=== PATIENT | male | born 1955 ===

== ENCOUNTER 2017-12-22 07:33 | Inpatient (IN) | payer BC, OTHER ==
[2017-12-22 07:41] VITALS: BMI 25.5
--- NOTE | 2017-12-22 08:23 | ED PDOC ---
Arrival/HPI - History of Present Illness Narrative History of Present Illness (Text): 12/22/17 08:19 CC: sob This is a 62 year old male with PMH of CHF (ef 25%) requiring pacemaker placement (2016), CAD with stents, HTN, who presents with exertional sob for the past 2-3 days. Pt states that the shortness of breath is worse after walking about 25 feet, and relieved by rest. Pt had a slight cough productive of white phelgm, but says the cough is due to phelgm stuck in his throat. Pt denies fever, chills, headache, lightheadedness, visual changes, chest pain, palpitations, leg swelling, leg pain, abdominal pain, n/v/d, recent illness, recent travel. Pt was on Plavix and Pradaxa, but told to stop taking that. PMD: Danielle (last seen 1 year ago because of insurance issues) Engineering Coordinator: Tramaine (last seen 1.5 years ago because of insurance issues) PMH: CAD with multivessel disease, [place] (Oct 2015) s/p stents x 6, CHF (with PPM 2017) HTN, HLD, Hypothyroidism, Aneurysm PSH: PPM (2017) Meds: ASA 81 mg daily. Doesn't take HTN medications because he doesn't have money. Allx: none <Perry Gallagher - Last Filed: 12/22/17 10:33> <Joby Ugarte - Last Filed: 12/22/17 12:26> - General Chief Complaint: Shortness Of Breath Time Seen by Provider: 12/22/17 07:35 Past Medical History - Infectious Disease Hx of Infectious Diseases: None - Cardiac Hx VT: Yes Hx Hypertension: Yes Other/Comment: catrdiac stent - Hematological/Oncological Hx Blood Transfusions: No - Integumentary Other/Comment: b/l ft redness, r foot black pinky toe - Musculoskeletal/Rheumatological Hx Falls: No - Psychiatric Hx Substance Use: No - Surgical History Hx Coronary Stent: Yes (x6) - Anesthesia Hx Anesthesia Reactions: No Hx Malignant Hyperthermia: No <Perry Gallagher - Last Filed: 12/22/17 10:33> Family/Social History Smoking Status: Unknown If Ever Smoked Hx Alcohol Use: No Hx Substance Use: No <Perry Gallagher Last Filed: 12/22/17 10:33> Family/Social History: Unknown Family HX <Joby Ugarte - Last Filed: 12/22/17 12:26> Allergies/Home Meds <Perry Gallagher - Last Filed: 12/22/17 10:33> <Joby Ugarte - Last Filed: 12/22/17 12:26> Allergies/Adverse Reactions: Allergies No Known Allergies Allergy (Verified 12/22/17 07:41) Home Medications: Home Meds Medication Instructions Recorded Confirmed RX: Amiodarone [Cordarone] 400 mg PO BID 03/01/16 05/03/16 RX: Atorvastatin [Lipitor] 80 mg PO DAILY 03/01/16 05/03/16 RX: Clopidogrel [Plavix] 75 mg PO DAILY 03/01/16 05/03/16 RX: Lisinopril [Zestril] 5 mg PO DAILY 03/01/16 05/03/16 RX: Metoprolol Succinate XL 50 mg PO DAILY 03/01/16 05/03/16 [Toprol XL] RX: amLODIPine [Norvasc] 5 mg PO DAILY 03/01/16 05/03/16 Review of Systems - Review of Systems Systems not reviewed;Unavailable: Other (see HPI) <Perry Gallagher Last Filed: 12/22/17 10:33> Physical Exam Vital Signs Reviewed: Yes (repeat BP is 164/99) Vital Signs Temp Pulse Resp BP Pulse Ox 12/22/17 08:08 18 93 L 12/22/17 07:42 97.9 F 101 H 23 179/102 H 94 L Appearance: Positive for: Non-Toxic, Comfortable - Systems Exam Head: Present: Atraumatic, Normocephalic Extroacular Muscles: Present: EOMI Conjunctiva: Present: Normal Mouth: Present: Moist Mucous Membranes Pharnyx: Present: ERYTHEMA. No: EXUDATE, TONSILS ENLARGED Nose (Internal): Present: Moist Neck: Present: Normal Range of Motion Respiratory/Chest: Present: Rales (at the bases bilaterally). No: Respiratory Distress, Wheezes, Rhonchi, Tachypneic, Tender to Palpation Cardiovascular: Present: Regular Rate and Rhythm, Normal S1, S2, Other ((+) PPM left upper chest wall) Abdomen: Present: Normal Bowel Sounds. No: Tenderness, Distention, Rebound, Guarding Upper Extremity: Present: NORMAL PULSES, Capillary Refill < 2s. No: Swelling Lower Extremity: Present: NORMAL PULSES, Capillary Refill < 2 s. No: CALF TENDERNESS, Tenderness, Swelling Neurological: Present: Speech Normal Skin: Present: Warm, Dry, Normal Color Psychiatric: Present: Alert <Perry Gallagher - Last Filed: 12/22/17 10:33> Vital Signs Temp Pulse Resp BP Pulse Ox 12/22/17 10:12 92 H 18 146/104 H 95 12/22/17 09:32 155/120 H 12/22/17 08:18 100 H 18 164/99 H 95 12/22/17 08:08 18 93 L 12/22/17 07:42 97.9 F 101 H 23 179/102 H 94 L <Joby Ugarte - Last Filed: 12/22/17 12:26> Medical Decision Making ED Course and Treatment: Pt with sob on exertion, no cp. congestion on CXR, BNP is greater than 5000. troponin negative x1. Treated with Furosemide 20 mg IVP. Admit for CHF exacerbation. - Lab Interpretations I have reviewed the lab results: Yes Interpretation: Abnormal lab values (BNP) - RAD Interpretation Narrative RAD Interpretations (Text): CXR: pulmonary vascular congestion, with bilateral pulm edema R>L; as read by me Radiology Orders: 12/22/17 08:14 CHEST PORTABLE [RAD] Stat - EKG Interpretation EKG Interpretation (Text): St at 102, occasional PVCs, LVH, nonspecific STTW changes; as read by ED attending Interpreted by ED Physician: Yes <Perry Gallagher - Last Filed: 12/22/17 10:33> ED Course and Treatment: 12/22/17 12:25 pt seen with resid[facility]. chf exacerb ation stable for telel. accepted by hiospitalist. - Lab Interpretations Lab Results: 12/22/17 07:55 12/22/17 07:55 Lab Results 12/22/17 07:55: Sodium 142, Potassium 4.1, Chloride 107, Carbon Dioxide 26, Anion Gap 13, BUN 29 H, Creatinine 1.3, Est GFR ( Amer) > 60, Est GFR (Non-Af Amer) 56, Random Glucose 117 H, Calcium 9.7, Magnesium 2.3 H, Total Bilirubin 0.9, AST 24, ALT 19, Alkaline Phosphatase 71, Lactate Dehydrogenase 595, Total Creatine Kinase 81, Troponin I 0.03 D, NT-Pro-B Natriuret Pep 5790 H , Total Protein 8.0, Albumin 4.5, Globulin 3.6, Albumin/Globulin Ratio 1.2 12/22/17 07:55: PT 12.7 H, INR 1.10, APTT 27.2 12/22/17 07:55: WBC 9.3, RBC 4.88, Hgb 15.9, Hct 47.0, MCV 96.3, MCH 32.6, MCHC 33.8, RDW 13.6, Plt Count 138, MPV 13.8 H, Gran % 74.2 H, Lymph % (Auto) 18.9 L, Bound[place] % (Auto) 5.2, Eos % (Auto) 1.2 L, Baso % (Auto) 0.5, Gran # 6.90 H, Lymph # (Auto) 1.8, Boundary # (Auto) 0.5, Eos # (Auto) 0.1, Baso # (Auto) 0.05 - RAD Interpretation Radiology Orders: 12/22/17 08:14 CHEST PORTABLE [RAD] Stat - Medication Orders Current Medication Orders: Discontinued Medications Furosemide (Lasix) 40 mg IVP STAT STA Stop: 12/22/17 09:20 Last Admin: 12/22/17 09:32 Dose: 40 mg MAR Blood Pressure Document 12/22/17 09:32 EQ (Rec: 12/22/17 09:33 EQ [id number]) Blood Pressure Blood Pressure (100/60-150/90) 155/120 IVP Administration Document 12/22/17 09:32 EQ (Rec: 12/22/17 09:33 EQ [id number]) Charges for Administration # of IVP Administrations 1 <Joby Ugarte - Last Filed: 12/22/17 12:26> Disposition/Present on Arrival - Present on Arrival Any Indicators Present on Arrival: No History of DVT/PE: No History of Uncontrolled Diabetes: No Urinary Catheter: No History of Decub. Ulcer: No History Surgical Site Infection Following: None - Disposition Have Diagnosis and Disposition been Completed?: Yes Disposition Time: 09:33 <Perry Gallagher - Last Filed: 12/22/17 10:33> - Present on Arrival Any Indicators Present on Arrival: No - Disposition Have Diagnosis and Disposition been Completed?: Yes <Joby Ugarte - Last Filed: 12/22/17 12:26> - Disposition Diagnosis: CHF (congestive heart failure) Disposition: HOSPITALIZED Patient Problems: Current Active Problems Problem Status Onset CHF (congestive heart failure) Acute Condition: GUARDED
[2017-12-22 08:59] LABS: BASO # 0.05 K/mm3 (0.0-2.0); BASO % 0.5 % (0.0-3.0); EOS # 0.1 (0.0-0.7); EOS % 1.2 % (1.5-5.0); GRAN # 6.9 (1.4-6.5); GRAN % 74.2 % (50.0-68.0); HEMOGLOBIN 15.9 g/dL (14.0-18.0); LYMPH # 1.8 (1.2-3.4); LYMPH % 18.9 % (22.0-35.0); MEAN CELL VOLUME 96.3 fl (80.0-105.0); MEAN CORPUSCULAR HEMOGLOBIN 32.6 pg (25.0-35.0); MEAN CORPUSCULAR HGB CONC 33.8 g/dl (31.0-37.0); MEAN PLATELET VOLUME 13.8 fl (7.0-11.0); MONO # 0.5 (0.1-0.6); MONO % 5.2 % (1.0-6.0); RBC 4.88 10^6/uL (3.5-6.1); RED CELL DISTRIBUTION WIDTH 13.6 % (11.5-14.5); WHITE BLOOD COUNT 9.3 10^3/ul (4.5-11.0)
[2017-12-22 09:09] LABS: ALB/GLOB RATIO 1.2 (1.1-1.8); ALBUMIN 4.5 g/dL (3.0-4.8); ALT/SGPT 19 U/L (7-56); AST/SGOT 24 U/L (17-59); BLOOD UREA NITROGEN 29 mg/dL (7-21); CALCIUM 9.7 mg/dL (8.4-10.5); GFR NON-AFRICAN AMERICAN 56
[2017-12-22 09:16] LABS: INR 1.1; PARTIAL THROMBOPLASTIN TIME 27.2 Seconds (25.1-36.5); PROTHROMBIN TIME 12.7 SECONDS (9.4-12.5)
[2017-12-22 09:18] LABS: B-TYPE NATRIURETIC PEPTIDE 5790 pg/mL (0-450); TROPONIN I 0.03 ng/mL
--- NOTE | 2017-12-22 10:22 | CARD ---
APPROVED REPORT Date of service: 12/22/2017 EKG Measurement Heart [id number] <Conclusion> Sinus tachycardia with premature ventricular complexes Left atrial enlargement IVCD Left ventricular hypertrophy Anteroseptal infarct, old ST & T wave abnormality c/w ischemia
[2017-12-22 10:43] LABS: URINE BILIRUBIN NEGATIVE (NEGATIVE); URINE BLOOD NEGATIVE (NEGATIVE); URINE GLUCOSE (UA) NEGATIVE (NEGATIVE); URINE LEUKOCYTE ESTERASE NEGATIVE Leu/uL (NEGATIVE); URINE PROTEIN NEGATIVE mg/dL (<30 mg/dL); URINE UROBILINOGEN 0.2 E.U./dL (<1 E.U./dL)
[2017-12-22 10:47] LABS: URINE APPEARANCE CLEAR (CLEAR); URINE COLOR YELLOW (YELLOW)
--- NOTE | 2017-12-22 11:43 | RAD ---
Date of service: 12/22/2017 HISTORY: Shortness of breath. COMPARISON: 03/01/2016. FINDINGS: LUNGS: No focal infiltrates identified. PLEURA: No significant pleural effusion identified, no pneumothorax apparent. CARDIOVASCULAR: No atherosclerotic calcification present Cardiomegaly and mild CHF/pulmonary vascular congestion. Position/ configuration of pacemaker represents a new finding compared to the prior study. OSSEOUS STRUCTURES: No significant abnormalities. VISUALIZED UPPER ABDOMEN: Normal. OTHER FINDINGS: None. IMPRESSION: Cardiomegaly, acute and mild CHF.
--- NOTE | 2017-12-22 13:48 | CP.PCM.HP ---
<AnhcharoJorge - Last Filed: 12/22/17 15:14> History of Present Illness - History of Present Illness History of Present Illness: PGY-1 Medicine H&P for Dr. Mata Patient a 62 yo M with PMHx of CHF w/ LVEF 25% (05/03/2016), pacemaker placement (01/2017), CAD s/p stents x 6 (2015), HTN, HLD, Hypothyroidism, aortic aneurysm (02/2016) who presents with BANDA x 3 days. Per patient, three days ago he was walking to his car when he started to feel short of breath. He attributed it to cold change in weather at the time. He tried to take Mucinex, as he thought he might have some congestion, but his symptoms did not resolve. Last night, patient again began having difficulty sleeping due to SOB. He states he normally sleeps with two pillows at night. His exertional symptoms also in creased, stating he cannot walk more than 20-25 feet without severe SOB, which prompted him to come to the ED. No fevers/chills, headches, dizziness, changes in vision, chest pain, palpitations, paroxysmal nocturnal dyspnea, orthopnea, peripheral edema, n/v/d/c, dysuria, or changes in stool. 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 Per patient, he was also on Plavix and Pradaxa but was told they were no longer indicated by his credit reporter at last visit Allergies: NKDA Social Hx: Former smoker-1ppd for several years, social drinker, denies illicit drug use FHx: unknown PMD: Dr. Santos (has not seen in over a year) Traffic Control Operator: Dr. Redd (has not seen in over a year) Present on Admission - Present on Admission Any Indicators Present on Admission: No History of DVT/PE: No History of Uncontrolled Diabetes: No Urinary Catheter: No Decubitus Ulcer Present: No Review of Systems - Constitutional Constitutional: absent: Chills, Fever, Headache, Weakness - EENT Eyes: absent: Blurred Vision, Change in Vision Ears: absent: Decreased Hearing Nose/Mouth/Throat: absent: Nasal Congestion, Nasal Discharge - Cardiovascular Cardiovascular: Dyspnea, Dyspnea on Exertion. absent: Chest Pain, Chest Pain at Rest, Chest Pain with Activity, Edema, Leg Edema, Lightheadedness, Orthopnea, Palpitations, Paroxysmal Nocturnal Dyspnea - Respiratory Respiratory: Dyspnea, Dyspnea on Exertion. absent: Cough, Hemoptysis, Wheezing, Stridor - Gastrointestinal Gastrointestinal: absent: Abdominal Pain, Constipation, Diarrhea, Nausea, Vomiting - Genitourinary Genitourinary: absent: Change in Urinary Stream, Difficulty Urinating, Dysuria - Musculoskeletal Musculoskeletal: absent: Arthralgias, Joint Swelling, Limited Range of Motion, Muscle Weakness, Myalgias - Neurological Neurological: absent: Confusion, Dizziness, Focal Weakness, Headaches, Syncope, Weakness Past Patient History - Infectious Disease Hx of Infectious Diseases: None - Past Social History Smoking Status: Unknown If Ever Smoked - CARDIAC Hx Heart Attack: Yes Hx Hypertension: Yes Other/Comment: catrdiac stent - HEMATOLOGICAL/ONCOLOGICAL Hx Blood Transfusions: No - INTEGUMENTARY Other/Comment: b/l ft redness, r foot black pinky toe - MUSCULOSKELETAL/RHEUMATOLOGICAL Hx Falls: No - PSYCHIATRIC Hx Substance Use: No - SURGICAL HISTORY Hx Coronary Stent: Yes (x6) - ANESTHESIA Hx Anesthesia Reactions: No Hx Malignant Hyperthermia: No Meds Allergies/Adverse Reactions: Allergies Allergy/AdvReac Type Severity Reaction Status Date / Time No Known Allergies Allergy Verified 12/22/17 07:41 Physical Exam - Constitutional Appears: Well, Non-toxic, No Acute Distress - Head Exam Head Exam: ATRAUMATIC, NORMAL INSPECTION, NORMOCEPHALIC - Eye Exam Eye Exam: EOMI, Normal appearance, PERRL Pupil Exam: NORMAL ACCOMODATION - ENT Exam ENT Exam: Mucous Membranes Moist, Normal Exam - Neck Exam Neck exam: Positive for: Normal Inspection - Respiratory Exam Respiratory Exam: Clear to Auscultation Bilateral, NORMAL BREATHING PATTERN. absent: Accessory Muscle Use, Rales, Rhonchi, Wheezes, Respiratory Distress, Stridor - Cardiovascular Exam Cardiovascular Exam: REGULAR RHYTHM, +S1, +S2 - GI/Abdominal Exam GI & Abdominal Exam: Normal Bowel Sounds, Soft. absent: Distended, Firm, Guarding, Rebound, Rigid, Tenderness - Extremities Exam Extremities exam: Positive for: full ROM, normal capillary refill, normal inspection, pedal pulses present. Negative for: calf tenderness, joint swelling, pedal edema - Back Exam Back exam: FULL ROM, NORMAL INSPECTION - Neurological Exam Neurological exam: Alert, CN II-XII Intact, Normal Gait, Oriented x3 - Psychiatric Exam Psychiatric exam: Normal Affect, Normal Mood - Skin Skin Exam: Dry, Intact, Normal Color, Warm Results - Vital Signs Recent Vital Signs: Last Vital Signs Temp 98.2 F 12/22/17 12:00 Pulse 87 12/22/17 12:00 Resp 18 12/22/17 12:00 BP 152/107 H 12/22/17 12:00 Pulse Ox 95 12/22/17 10:12 - Labs Result Diagrams: 12/22/17 07:55 12/22/17 07:55 Labs: Laboratory Results - last 24 hr 12/22/17 12/22/17 12/22/17 07:55 07:55 07:55 WBC 9.3 RBC 4.88 Hgb 15.9 Hct 47.0 MCV 96.3 MCH 32.6 MCHC 33.8 RDW 13.6 Plt Count 138 MPV 13.8 H Gran % 74.2 H Lymph % (Auto) 18.9 L Tyrrell % (Auto) 5.2 Eos % (Auto) 1.2 L Baso % (Auto) 0.5 Gran # 6.90 H Lymph # (Auto) 1.8 Tyrrell # (Auto) 0.5 Eos # (Auto) 0.1 Baso # (Auto) 0.05 PT 12.7 H INR 1.10 APTT 27.2 Sodium 142 Potassium 4.1 Chloride 107 Carbon Dioxide 26 Anion Gap 13 BUN 29 H Creatinine 1.3 Est GFR ( Amer) > 60 Est GFR (Non-Af Amer) 56 Random Glucose 117 H Calcium 9.7 Magnesium 2.3 H Total Bilirubin 0.9 AST 24 ALT 19 Alkaline Phosphatase 71 Lactate Dehydrogenase 595 Total Creatine Kinase 81 Troponin I 0.03 D NT-Pro-B Natriuret Pep 5790 H Total Protein 8.0 Albumin 4.5 Globulin 3.6 Albumin/Globulin Ratio 1.2 Urine Color Urine Appearance Urine pH Ur Specific Treichlers Urine Protein Urine Glucose (UA) Urine Ketones Urine Blood Urine Nitrate Urine Bilirubin Urine Urobilinogen Ur Leukocyte Esterase 12/22/17 10:30 WBC RBC Hgb Hct MCV MCH MCHC RDW Plt Count MPV Gran % Lymph % (Auto) Tyrrell % (Auto) Eos % (Auto) Baso % (Auto) Gran # Lymph # (Auto) Tyrrell # (Auto) Eos # (Auto) Baso # (Auto) PT INR APTT Sodium Potassium Chloride Carbon Dioxide Anion Gap BUN Creatinine Est GFR ( Amer) Est GFR (Non-Af Amer) Random Glucose Calcium Magnesium Total Bilirubin AST ALT Alkaline Phosphatase Lactate Dehydrogenase Total Creatine Kinase Troponin I NT-Pro-B Natriuret Pep Total Protein Albumin Globulin Albumin/Globulin Ratio Urine Color Yellow Urine Appearance Clear Urine pH 6.0 Ur Specific Treichlers 1.025 Urine Protein Negative Urine Glucose (UA) Negative Urine Ketones Negative Urine Blood Negative Urine Nitrate Negative Urine Bilirubin Negative Urine Urobilinogen 0.2 Ur Leukocyte Esterase Negative Assessment & Plan - Assessment and Plan (Free Text) Assessment: 62 yo M with PMHx CHF (EF 25%), pacemaker placement (05/2016), CAD s/p stents x 6 (2015), HTN, HLD, Hypothyroidism, aortic aneurysm (02/2016) presenting with CHF exacerbation and HTN urgency. Plan: Acute exacerbation of Systolic HF with reduced EF --Pt presented with BANDA x 3 days --clinically improved s/p Lasix 40 mg IVP x1 in ED, continuing to monitor --Trop x 1 negative, f/u trops 2 and 3 --BNP 5290 --daily weights --strict I/Os --fluid, Na restriction --Imaging -EKG (12/22): Sinus tachycardia with PVCs, L atrial enlargement, LVH, old anteroseptal infarct, ST & T wave abnormality without ischemia -CXR (12/22): cardiomegaly, mild CHF/pulmonary vascular congestion, pacemaker in place --Cardiology (Dr. Redd) on board Hypertensive Urgency --BP 179/102 on admission, not compliant with meds --Continue to monitor BP --Restart home medications -Norvasc 5mg PO daily -Lisinopril 5mg PO daily -Metoprolol 50 mg PO daily Hx of CAD s/p stents --Trend trops --f/u HgbA1C --f/u Lipid panel --Restart home ASA 81 mg PO daily --Heart healthy diet HLD --f/u lipid panel --Restart home Atorvastatin 80 mg PO daily Hypothyroidism --Pt asymptomatic, not currently on medications --f/u TSH, free T4 Ppx, Diet, Disposition --DVT ppx: Lovenox 40 mg subQ daily --Diet: HHD --Disposition: Pt can likely be discharged if symptoms resolve pending cardio eval. Pt will need joann care and education on medication compliance following discharge as he is without insurance. Case discussed with Dr. Esperanza Parikh DO, PGY-1 <Tahir Mata - Last Filed: 12/22/17 16:03> Results - Vital Signs Recent Vital Signs: Last Vital Signs Temp 98.2 F 12/22/17 12:00 Pulse 104 H 12/22/17 14:00 Resp 18 12/22/17 12:00 BP 152/107 H 12/22/17 12:00 Pulse Ox 95 12/22/17 10:12 - Labs Result Diagrams: 12/22/17 07:55 12/22/17 07:55 Labs: Laboratory Results - last 24 hr 12/22/17 12/22/17 12/22/17 07:55 07:55 07:55 WBC 9.3 RBC 4.88 Hgb 15.9 Hct 47.0 MCV 96.3 MCH 32.6 MCHC 33.8 RDW 13.6 Plt Count 138 MPV 13.8 H Gran % 74.2 H Lymph % (Auto) 18.9 L Tyrrell % (Auto) 5.2 Eos % (Auto) 1.2 L Baso % (Auto) 0.5 Gran # 6.90 H Lymph # (Auto) 1.8 Tyrrell # (Auto) 0.5 Eos # (Auto) 0.1 Baso # (Auto) 0.05 PT 12.7 H INR 1.10 APTT 27.2 Sodium 142 Potassium 4.1 Chloride 107 Carbon Dioxide 26 Anion Gap 13 BUN 29 H Creatinine 1.3 Est GFR ( Amer) > 60 Est GFR (Non-Af Amer) 56 Random Glucose 117 H Calcium 9.7 Magnesium 2.3 H Total Bilirubin 0.9 AST 24 ALT 19 Alkaline Phosphatase 71 Lactate Dehydrogenase 595 Total Creatine Kinase 81 Troponin I 0.03 D NT-Pro-B Natriuret Pep 5790 H Total Protein 8.0 Albumin 4.5 Globulin 3.6 Albumin/Globulin Ratio 1.2 Urine Color Urine Appearance Urine pH Ur Specific Treichlers Urine Protein Urine Glucose (UA) Urine Ketones Urine Blood Urine Nitrate Urine Bilirubin Urine Urobilinogen Ur Leukocyte Esterase 12/22/17 12/22/17 10:30 14:00 WBC RBC Hgb Hct MCV MCH MCHC RDW Plt Count MPV Gran % Lymph % (Auto) Tyrrell % (Auto) Eos % (Auto) Baso % (Auto) Gran # Lymph # (Auto) Tyrrell # (Auto) Eos # (Auto) Baso # (Auto) PT INR APTT Sodium Potassium Chloride Carbon Dioxide Anion Gap BUN Creatinine Est GFR ( Amer) Est GFR (Non-Af Amer) Random Glucose Calcium Magnesium Total Bilirubin AST ALT Alkaline Phosphatase Lactate Dehydrogenase Total Creatine Kinase Troponin I 0.03 NT-Pro-B Natriuret Pep Total Protein Albumin Globulin Albumin/Globulin Ratio Urine Color Yellow Urine Appearance Clear Urine pH 6.0 Ur Specific Treichlers 1.025 Urine Protein Negative Urine Glucose (UA) Negative Urine Ketones Negative Urine Blood Negative Urine Nitrate Negative Urine Bilirubin Negative Urine Urobilinogen 0.2 Ur Leukocyte Esterase Negative Attending/Attestation - Attestation I have personally seen and examined this patient.: Yes I have fully participated in the care of the patient.: Yes I have reviewed all pertinent clinical information: Yes Notes (Text): Patient seen and examined with the residents, agree with above No cardiopulmonary distress, sitting up and maintaining good O2 saturation Acute exacerbation of HF with reduced EF - continue with IV lasix and acei/arb therapy Cardio consultation for further management, has poor medication compliance and outpt f/u due to lack of insurance Optimize bp control
[2017-12-22] MEDS: Enoxaparin 40 mg Syringe SC SCH (14:10)
[2017-12-22] MEDS ORDERED: Influenza Vaccine 60 mcg/0.5 mL SYR (4YR UP) IM ONE (17:34)
[2017-12-22] MEDS ORDERED: Pneumococcal 23-Valent Vaccine IM ONE (17:34)
[2017-12-22 17:37] VITALS: RESP 20
[2017-12-23 06:22] LABS: BASO # 0.06 K/mm3 (0.0-2.0); BASO % 0.6 % (0.0-3.0); EOS # 0.3 (0.0-0.7); EOS % 2.7 % (1.5-5.0); GRAN # 5.31 (1.4-6.5); GRAN % 57.2 % (50.0-68.0); HEMOGLOBIN 15.4 g/dL (14.0-18.0); LYMPH # 2.8 (1.2-3.4); MEAN CELL VOLUME 95.8 fl (80.0-105.0); MEAN CORPUSCULAR HEMOGLOBIN 32.7 pg (25.0-35.0); MEAN CORPUSCULAR HGB CONC 34.1 g/dl (31.0-37.0); MEAN PLATELET VOLUME 13.9 fl (7.0-11.0); MONO # 0.9 (0.1-0.6); MONO % 9.5 % (1.0-6.0); RBC 4.71 10^6/uL (3.5-6.1); RED CELL DISTRIBUTION WIDTH 13.7 % (11.5-14.5); WHITE BLOOD COUNT 9.3 10^3/ul (4.5-11.0)
[2017-12-23 06:30] VITALS: O2SAT 97
[2017-12-23 06:47] LABS: LDL CHOLESTEROL 164 mg/dL (0-129)
[2017-12-23 06:48] LABS: FREE T4 0.79 ng/dL (0.78-2.19)
[2017-12-23 07:21] LABS: ALB/GLOB RATIO 1.3 (1.1-1.8); ALBUMIN 4.3 g/dL (3.0-4.8); ALT/SGPT 23 U/L (7-56); AST/SGOT 27 U/L (17-59); BLOOD UREA NITROGEN 35 mg/dL (7-21); CALCIUM 9.4 mg/dL (8.4-10.5); GFR NON-AFRICAN AMERICAN 51; HDL CHOLESTEROL 35 mg/dL (29-60)
[2017-12-23] MEDS ORDERED: Metoprolol Succinate 50 mg XL Tab PO SCH (08:00)
--- NOTE | 2017-12-23 09:30 | CARD ---
APPROVED REPORT Date of service: 12/22/2017 EXAM: Two-dimensional and M-mode echocardiogram with Doppler and color Doppler. Other Information Quality : AverageRhythm : INDICATION CHF EXACERBATION: LOW EF 2D DIMENSIONS Left Atrium (2D)4.9 (1.6-4.0cm)IVSd1.2 (0.7-1.1cm) LVDd6.9 (3.9-5.9cm)PWd1.2 (0.7-1.1cm) LVDs6.4 (2.5-4.0cm)FS (%) 7.5 % LVEF (%)16.0 (>50%) M-Mode DIMENSIONS Aortic Root3.90 (2.2-3.7cm)Aortic Cusp Exc.1.70 (1.5-2.0cm) Aortic Valve AoV Peak Xbplbnvv291.0cm/s Mitral Valve MV E Srisjjqs22.4cm/sMV A Kkzbguzt85.1cm/sE/A ratio1.5 TDI E/Lateral E'0.0E/Medial E'0.0 Tricuspid Valve TR Peak [id number]/sRAP [id number] Peak Gr.23mmHg [id number] LEFT VENTRICLE The Left Ventricle is moderately dilated. There is normal left ventricular wall thickness. Left ventricle systolic function is severely impaired. The Ejection Fraction is 15-20%. There is severe global hypokinesis. RIGHT VENTRICLE The right ventricle is normal size. There is a pacemaker/ICD lead in the right ventricle. ATRIA The left atrium is moderately dilated. The right atrium size is normal. There is a catheter/pacemaker/ICD lead seen in the right atrium. The interatrial septum is intact with no evidence for an atrial septal defect. AORTIC VALVE The aortic valve is normal in structure. There is mild aortic regurgitation. MITRAL VALVE The mitral valve is moderately thickened but opens well. Mitral regurgitation is mild to moderate. TRICUSPID VALVE The tricuspid valve is not well visualized. There is mild tricuspid regurgitation. PULMONIC VALVE The pulmonic valve is not well visualized. GREAT VESSELS The aortic root is normal in size. PERICARDIAL EFFUSION There is no pericardial effusion. <Conclusion> The Left Ventricle is moderately dilated. There is normal left ventricular wall thickness. Left ventricle systolic function is severely impaired. The Ejection Fraction is 15-20%. There is severe global hypokinesis. There is mild aortic regurgitation. Mitral regurgitation is mild to moderate. There is mild tricuspid regurgitation.
[2017-12-23] MEDS: Enoxaparin 40 mg Syringe SC SCH (10:04)
[2017-12-23] MEDS ORDERED: Metoprolol Succinate 100 mg XL Tab PO SCH (14:08)
[2017-12-23 14:34] VITALS: BP 111/60; TEMP 98.4
--- NOTE | 2017-12-23 16:19 | CP.PCM.DIS ---
Addendum entered and electronically signed by Jorge Parikh DO 12/24/17 07:09: *Patient does not currently have insurance. I spoke to him about following up with the [facility] clinic with instructions given to call the number provided to schedule an appointment. Patient has been given scripts for all medications, instructed to follow up with clinic for continued care and assistance with obtaining medications. Original Note: <Jorge Parikh - Last Filed: 12/23/17 17:40> Provider - Provider Date of Admission: 12/22/17 09:33 Attending physician: Alisha Diaz MD Time Spent in preparation of Discharge (in minutes): 40 Hospital Course - Lab Results Lab Results: Most Recent Lab Values WBC 9.3 10^3/ul (4.5-11.0) 12/23/17 05:40 RBC 4.71 10^6/uL (3.5-6.1) 12/23/17 05:40 Hgb 15.4 g/dL (14.0-18.0) 12/23/17 05:40 Hct 45.1 % (42.0-52.0) 12/23/17 05:40 MCV 95.8 fl (80.0-105.0) 12/23/17 05:40 MCH 32.7 pg (25.0-35.0) 12/23/17 05:40 MCHC 34.1 g/dl (31.0-37.0) 12/23/17 05:40 RDW 13.7 % (11.5-14.5) 12/23/17 05:40 Plt Count 140 10^3/uL (120.0-450.0) 12/23/17 05:40 MPV 13.9 fl (7.0-11.0) H 12/23/17 05:40 Gran % 57.2 % (50.0-68.0) 12/23/17 05:40 Lymph % (Auto) 30.0 % (22.0-35.0) 12/23/17 05:40 Emmons % (Auto) 9.5 % (1.0-6.0) H 12/23/17 05:40 Eos % (Auto) 2.7 % (1.5-5.0) 12/23/17 05:40 Baso % (Auto) 0.6 % (0.0-3.0) 12/23/17 05:40 Gran # 5.31 (1.4-6.5) 12/23/17 05:40 Lymph # (Auto) 2.8 (1.2-3.4) 12/23/17 05:40 Emmons # (Auto) 0.9 (0.1-0.6) H 12/23/17 05:40 Eos # (Auto) 0.3 (0.0-0.7) 12/23/17 05:40 Baso # (Auto) 0.06 K/mm3 (0.0-2.0) 12/23/17 05:40 PT 12.7 SECONDS (9.4-12.5) H 12/22/17 07:55 INR 1.10 12/22/17 07:55 APTT 27.2 Seconds (25.1-36.5) 12/22/17 07:55 Sodium 141 mmol/L (132-148) 12/23/17 05:50 Potassium 3.9 mmol/L (3.6-5.0) 12/23/17 05:50 Chloride 104 mmol/L (98-107) 12/23/17 05:50 Carbon Dioxide 29 mmol/L (21-33) 12/23/17 05:50 Anion Gap 12 (10-20) 12/23/17 05:50 BUN 35 mg/dL (7-21) H 12/23/17 05:50 Creatinine 1.4 mg/dl (0.8-1.5) 12/23/17 05:50 Est GFR ( Amer) > 60 12/23/17 05:50 Est GFR (Non-Af Amer) 51 12/23/17 05:50 Random Glucose 96 mg/dL (70-110) 12/23/17 05:50 Hemoglobin A1c 5.7 % (4.2-6.5) 12/23/17 05:40 Calcium 9.4 mg/dL (8.4-10.5) 12/23/17 05:50 Phosphorus 3.9 mg/dL (2.5-4.5) 12/23/17 05:50 Magnesium 2.3 mg/dL (1.7-2.2) H 12/23/17 05:50 Total Bilirubin 1.1 mg/dL (0.2-1.3) 12/23/17 05:50 AST 27 U/L (17-59) 12/23/17 05:50 ALT 23 U/L (7-56) 12/23/17 05:50 Alkaline Phosphatase 60 U/L (38-126) 12/23/17 05:50 Lactate Dehydrogenase 595 U/L (333-699) 12/22/17 07:55 Total Creatine Kinase 81 U/L (35-230) 12/22/17 07:55 Troponin I 0.05 ng/mL D 12/22/17 20:45 NT-Pro-B Natriuret Pep 5790 pg/mL (0-450) H 12/22/17 07:55 Total Protein 7.7 g/dL (5.8-8.3) 12/23/17 05:50 Albumin 4.3 g/dL (3.0-4.8) 12/23/17 05:50 Globulin 3.4 gm/dL 12/23/17 05:50 Albumin/Globulin Ratio 1.3 (1.1-1.8) 12/23/17 05:50 Triglycerides 125 mg/dL (35-160) 12/23/17 05:50 Cholesterol 237 mg/dL (130-200) H 12/23/17 05:50 LDL Cholesterol Direct 164 mg/dL (0-129) H 12/23/17 05:50 HDL Cholesterol 35 mg/dL (29-60) 12/23/17 05:50 Free T4 0.79 ng/dL (0.78-2.19) 12/23/17 05:40 TSH 3rd Generation 36.60 mIU/mL (0.46-4.68) H 12/23/17 05:40 Urine Color Yellow (YELLOW) 12/22/17 10:30 Urine Appearance Clear (CLEAR) 12/22/17 10:30 Urine pH 6.0 (4.7-8.0) 12/22/17 10:30 Ur Specific Sims 1.025 (1.005-1.035) 12/22/17 10:30 Urine Protein Negative mg/dL (<30 mg/dL) 12/22/17 10:30 Urine Glucose (UA) Negative mg/dL (NEGATIVE) 12/22/17 10:30 Urine Ketones Negative mg/dL (NEGATIVE) 12/22/17 10:30 Urine Blood Negative (NEGATIVE) 12/22/17 10:30 Urine Nitrate Negative (NEGATIVE) 12/22/17 10:30 Urine Bilirubin Negative (NEGATIVE) 12/22/17 10:30 Urine Urobilinogen 0.2 E.U./dL (<1 E.U./dL) 12/22/17 10:30 Ur Leukocyte Esterase Negative Enmanuel/uL (NEGATIVE) 12/22/17 10:30 - Hospital Course Hospital Course: HPI: Mr Carrington is a 62 year old male with past medical history of congestive heart failure w/ LVEF 25% (05/03/2016), pacemaker placement (01/2017), coronary artery disease status post stents x 6 (2015), hypertension, hyperlipidemia, Hypothyroidism, aortic aneurysm (02/2016) who presents with dyspnea on exertion x 3 days. Per patient, three days ago he was walking to his car when he started to feel short of breath. He attributed it to cold change in weather at the time. He tried to take Mucinex, as he thought he might have some congestion, but his symptoms did not resolve. Last night, patient again began having difficulty sleeping due to shortness of breath. He states he normally sleeps with two pillows at night. His exertional symptoms also increased, stating he cannot walk more than 20-25 feet without severe shortness of breath, which prompted him to come to the ED. No fevers/chills, headches, dizziness, changes in vision, chest pain, palpitations, paroxysmal nocturnal dyspnea, orthopnea, peripheral edema, nausea/vomiting/diarrhea/constipation, dysuria, or changes in stool. On admission, his blood pressure was 179/102. EKG showed sinus tachycardia with occasional premature ventricular contractions, left ventricular hypertrophy, and old septal infarct. Chest XR showed mild pulmonary vascular congestion. BNP was elevated at 5290. Echocardiogram showed severely impaired systolic function, EF 15-20%, severe global hypokinesis, mild aortic regurgitation, mild to moderate mitral regurgitation, and mild tricuspid regurgitation. Cholesterol and LDL were elevated at 237 and 164 respectively. HgbA1C was 5.7. He received IV Lasix 40 mg daily with resolution of symptoms. He was also restarted on his home Norvasc, Aspirin, Lipitor, Plavix, Lisinopril, and Toprol XL to optimize his blood pressure and manage his chronic diseases. Patient's TSH was 36.6 (down from prior 131) and he was started on levothyroxine. Patient denies any shortness of breath, chest pain, palpitations, dyspnea on exertion, headaches, dizziness, or changes in vision. He is able to ambulate without limitations. He is medically stable for discharge, per Dr. Diaz. Patient was counseled extensively on his need for medication compliance and followup. Please take the following medications, as prescribed. Scripts have all been provided: Norvasc 5 mg PO daily Toprol XL 50 mg PO Daily Lisinopril 5 mg PO daily Plavix 75 mg PO daily Lipitor 80 mg PO daily Aspirin 81 mg PO daily Lasix 40 mg PO daily Synthroid 50 mcg PO daily Amiodarone 200 mg PO daily Patient was counseled extensively on his need for medication compliance and followup. Please follow up with your primary care provider (Dr. Santos) and production utility worker (Dr. Redd) for continued care and medical management. Please return to the ED if symptoms worsen. - Date & Time of H&P Date of H&P: 12/23/17 Time of H&P: 16:05 Discharge Exam - Head Exam Head Exam: ATRAUMATIC, NORMAL INSPECTION, NORMOCEPHALIC - Eye Exam Eye Exam: EOMI, Normal appearance Pupil Exam: NORMAL ACCOMODATION - ENT Exam ENT Exam: Mucous Membranes Moist, Normal Exam - Respiratory Exam Respiratory Exam: Clear to PA & Lateral, NORMAL BREATHING PATTERN, UNREMARKABLE. absent: Rales, Rhonchi, Wheezes, Respiratory Distress - Cardiovascular Exam Cardiovascular Exam: REGULAR RHYTHM, +S1, +S2 - GI/Abdominal Exam GI & Abdominal Exam: Normal Bowel Sounds, Soft, Unremarkable. absent: Distended, Firm, Guarding, Rebound, Rigid, Tenderness - Extremities Exam Extremities exam: full ROM, normal capillary refill, normal inspection, pedal pulses present - Back Exam Back exam: NORMAL INSPECTION - Neurological Exam Neurological exam: Alert, Normal Gait, Oriented x3, Reflexes Normal - Psychiatric Exam Psychiatric exam: Normal Affect, Normal Mood - Skin Skin Exam: Dry, Intact, Normal Color, Warm Discharge Plan - Discharge Medications Prescriptions: Amiodarone [Cordarone] 200 mg PO DAILY #30 tab amLODIPine [Norvasc] 5 mg PO DAILY #30 tab Aspirin [Ecotrin] 81 mg PO DAILY #30 tabec Atorvastatin [Lipitor] 80 mg PO DAILY #30 tab Clopidogrel [Plavix] 75 mg PO DAILY #30 tab Furosemide [Lasix] 40 mg PO DAILY #30 tablet Levothyroxine [Synthroid] 50 mcg PO DAILY #30 tab Lisinopril [Zestril] 5 mg PO DAILY #30 tab Metoprolol Succinate XL [Toprol XL] 50 mg PO DAILY #30 tab - Follow Up Plan Condition: GUARDED Disposition: HOME/ ROUTINE Instructions: Heart Healthy Diet, Chest Pain, Heart Failure, Adult (DC) Additional Instructions: Please take the following medications, as prescribed. Scripts have all been provided: Norvasc 5 mg PO daily Toprol XL 50 mg PO Daily Lisinopril 5 mg PO daily Plavix 75 mg PO daily Lipitor 80 mg PO daily Aspirin 81 mg PO daily Lasix 40 mg PO daily Synthroid 50 mcg PO daily Patient was counseled extensively on his need for medication compliance and followup. Please follow up with your primary care provider (Dr. Santos) and production utility worker (Dr. Redd) for continued care and medical management. Please return to the ED if symptoms worsen. Referrals: Keith Santos MD [Family Provider] - Tay Redd MD [Staff Provider] - <Alisha Diaz - Last Filed: 12/23/17 18:15> Provider - Provider Date of Admission: 12/22/17 09:33 Attending physician: Alisha Diaz MD Hospital Course - Lab Results Lab Results: Most Recent Lab Values WBC 9.3 10^3/ul (4.5-11.0) 12/23/17 05:40 RBC 4.71 10^6/uL (3.5-6.1) 12/23/17 05:40 Hgb 15.4 g/dL (14.0-18.0) 12/23/17 05:40 Hct 45.1 % (42.0-52.0) 12/23/17 05:40 MCV 95.8 fl (80.0-105.0) 12/23/17 05:40 MCH 32.7 pg (25.0-35.0) 12/23/17 05:40 MCHC 34.1 g/dl (31.0-37.0) 12/23/17 05:40 RDW 13.7 % (11.5-14.5) 12/23/17 05:40 Plt Count 140 10^3/uL (120.0-450.0) 12/23/17 05:40 MPV 13.9 fl (7.0-11.0) H 12/23/17 05:40 Gran % 57.2 % (50.0-68.0) 12/23/17 05:40 Lymph % (Auto) 30.0 % (22.0-35.0) 12/23/17 05:40 Emmons % (Auto) 9.5 % (1.0-6.0) H 12/23/17 05:40 Eos % (Auto) 2.7 % (1.5-5.0) 12/23/17 05:40 Baso % (Auto) 0.6 % (0.0-3.0) 12/23/17 05:40 Gran # 5.31 (1.4-6.5) 12/23/17 05:40 Lymph # (Auto) 2.8 (1.2-3.4) 12/23/17 05:40 Emmons # (Auto) 0.9 (0.1-0.6) H 12/23/17 05:40 Eos # (Auto) 0.3 (0.0-0.7) 12/23/17 05:40 Baso # (Auto) 0.06 K/mm3 (0.0-2.0) 12/23/17 05:40 PT 12.7 SECONDS (9.4-12.5) H 12/22/17 07:55 INR 1.10 12/22/17 07:55 APTT 27.2 Seconds (25.1-36.5) 12/22/17 07:55 Sodium 141 mmol/L (132-148) 12/23/17 05:50 Potassium 3.9 mmol/L (3.6-5.0) 12/23/17 05:50 Chloride 104 mmol/L (98-107) 12/23/17 05:50 Carbon Dioxide 29 mmol/L (21-33) 12/23/17 05:50 Anion Gap 12 (10-20) 12/23/17 05:50 BUN 35 mg/dL (7-21) H 12/23/17 05:50 Creatinine 1.4 mg/dl (0.8-1.5) 12/23/17 05:50 Est GFR ( Amer) > 60 12/23/17 05:50 Est GFR (Non-Af Amer) 51 12/23/17 05:50 Random Glucose 96 mg/dL (70-110) 12/23/17 05:50 Hemoglobin A1c 5.7 % (4.2-6.5) 12/23/17 05:40 Calcium 9.4 mg/dL (8.4-10.5) 12/23/17 05:50 Phosphorus 3.9 mg/dL (2.5-4.5) 12/23/17 05:50 Magnesium 2.3 mg/dL (1.7-2.2) H 12/23/17 05:50 Total Bilirubin 1.1 mg/dL (0.2-1.3) 12/23/17 05:50 AST 27 U/L (17-59) 12/23/17 05:50 ALT 23 U/L (7-56) 12/23/17 05:50 Alkaline Phosphatase 60 U/L (38-126) 12/23/17 05:50 Lactate Dehydrogenase 595 U/L (333-699) 12/22/17 07:55 Total Creatine Kinase 81 U/L (35-230) 12/22/17 07:55 Troponin I 0.05 ng/mL D 12/22/17 20:45 NT-Pro-B Natriuret Pep 5790 pg/mL (0-450) H 12/22/17 07:55 Total Protein 7.7 g/dL (5.8-8.3) 12/23/17 05:50 Albumin 4.3 g/dL (3.0-4.8) 12/23/17 05:50 Globulin 3.4 gm/dL 12/23/17 05:50 Albumin/Globulin Ratio 1.3 (1.1-1.8) 12/23/17 05:50 Triglycerides 125 mg/dL (35-160) 12/23/17 05:50 Cholesterol 237 mg/dL (130-200) H 12/23/17 05:50 LDL Cholesterol Direct 164 mg/dL (0-129) H 12/23/17 05:50 HDL Cholesterol 35 mg/dL (29-60) 12/23/17 05:50 Free T4 0.79 ng/dL (0.78-2.19) 12/23/17 05:40 TSH 3rd Generation 36.60 mIU/mL (0.46-4.68) H 12/23/17 05:40 Urine Color Yellow (YELLOW) 12/22/17 10:30 Urine Appearance Clear (CLEAR) 12/22/17 10:30 Urine pH 6.0 (4.7-8.0) 12/22/17 10:30 Ur Specific Sims 1.025 (1.005-1.035) 12/22/17 10:30 Urine Protein Negative mg/dL (<30 mg/dL) 12/22/17 10:30 Urine Glucose (UA) Negative mg/dL (NEGATIVE) 12/22/17 10:30 Urine Ketones Negative mg/dL (NEGATIVE) 12/22/17 10:30 Urine Blood Negative (NEGATIVE) 12/22/17 10:30 Urine Nitrate Negative (NEGATIVE) 12/22/17 10:30 Urine Bilirubin Negative (NEGATIVE) 12/22/17 10:30 Urine Urobilinogen 0.2 E.U./dL (<1 E.U./dL) 12/22/17 10:30 Ur Leukocyte Esterase Negative Enmanuel/uL (NEGATIVE) 12/22/17 10:30 Attending/Attestation - Attestation I have personally seen and examined this patient.: Yes I have fully participated in the care of the patient.: Yes I have reviewed all pertinent clinical information, including history, physical exam and plan: Yes Notes (Text): 12/23/17 18:09 62 year old male with past medical history of CHF s/p PPM, CAD s/p stents, hypothyroidism and history of medication noncompliance who presented with complaint of shortness of breath. He was found to have acute systolic CHF exacerbation and started on iv lasix with improvement of symptoms. His home medications were resumed. He was counselled on medication noncompliance. He was seem by cardiology who recommended outpatient follow up. He was started on synthroid for hypothyroidism and adviced to repeat TFTs in 4-6 weeks. Patient is discharged home to follow up at [facility]. Counselled on medication compliance. Repeat TFTs in 4-6 weeks. Alisha Diaz MD Hospitalist.
[2017-12-23 16:49] VITALS: PULSE 69
--- NOTE | 2017-12-24 05:36 | CON ---
DATE: 12/23/2017 REASON FOR CONSULTATION: Patient with shortness of breath. HISTORY OF PRESENT ILLNESS: The patient is 62 years old male who has a history of ischemic cardiomyopathy with a history of ICD placement last year at [facility]. The patient currently ran out of his medications because he was on COBRA coverage that he lost, that was terminated recently and was not taking any medications, he presented because of shortness of breath, mild productive cough. The patient denies any fever or chills and denies any associated chest pain. The patient was taken off Plavix and Pradaxa in the past for unclear reason. SOCIAL HISTORY: The patient is a former smoker and former drinker. MEDICATIONS: Aspirin 81 mg once daily, Lasix 40 mg intravenous twice daily, Lipitor 80 mg once daily, Lovenox 40 mg once a day, Norvasc 5 mg once a day, Toprol-XL 50 mg once a day, Zestril 5 mg once a day, and Plavix was added by me at 75 mg daily. REVIEW OF SYSTEMS: No fever or chills. No nausea or vomiting. PHYSICAL EXAMINATION: GENERAL: The patient is a middle aged male who does not appear to be in acute distress. VITAL SIGNS: Blood pressure 125/82, heart rate 72, temperature 97, respirations 20. HEENT: Normocephalic. CHEST: Minimal base rhonchi. HEART: S1 and S2 regular. S3 gallop is noted. ABDOMEN: Soft. EXTREMITIES: Trace leg edema. LABORATORY DATA: Today's hemoglobin and hematocrit 15.4 and 45.1, white count 9.3, platelet count 140,000. Today's SMA-7 is within normal limit except for BUN of 35. Magnesium is 2.3. LDL cholesterol is 164, total cholesterol is 237, both are significantly elevated. TSH level elevated at 36.6. EKG reveals sinus tachycardia with PVCs, left atrial enlargement, intraventricular conduction delay, anteroseptal infarct, ST-T wave abnormality consistent with ischemia. Echocardiogram study revealed an ejection fraction range of 15% to 20%. Severe global hypokinesis and mild left ventricular insufficiency. cardiac catheterization in 05/2016 revealed ischemic dilated cardiomyopathy with ejection fraction estimated at 25%. Multivessel coronary artery disease with patent stents in LAD and right coronary artery with occluded mid to distal PDA and critical lesion on the diagonal vessel and diffuse peripheral vascular disease. Today's admitting chest x-ray revealed cardiomegaly with moderate CHF. ASSESSMENT: 1. The patient presents with heart failure. 2. Coronary artery disease with patent LAD and right coronary artery stents with occluded mid to distal PDA and critical disease of the right diagonal branch. 3. Hypothyroidism. 4. Nonsustained ventricular tachycardia. RECOMMENDATIONS: Continue aspirin 81 mg once a day, Plavix 75 mg once a day, increase Toprol-XL at 100 mg daily, continue Norvasc 5 mg once a day, subcutaneous Lovenox 40 mg once daily, Lasix 40 mg intravenous daily, Lipitor at 80 mg daily. Start thyroid replacement therapy with a relatively smaller dose to avoid . Hema Hale MD
== END 2017-12-23 19:34 | disposition home or self-care (01) | DRG 127 ==
LOC: ED 07:33 → ERH 09:33 → 2RNO 11:14
PROVIDERS: ADMIT Internal Medicine; ATTEND Internal Medicine
DX: I11.0 Hypertensive heart disease with heart failure (principal); I50.23 Acute on chronic systolic (congestive) heart failure; I08.3 Combined rheumatic disorders of mitral, aortic and tricuspid valves; I47.2 Ventricular tachycardia; E03.9 Hypothyroidism, unspecified; E78.5 Hyperlipidemia, unspecified; I16.0 Hypertensive urgency; I25.5 Ischemic cardiomyopathy; I25.10 Atherosclerotic heart disease of native coronary artery without angina pectoris; Z95.5 Presence of coronary angioplasty implant and graft; I25.2 Old myocardial infarction; Z95.810 Presence of automatic (implantable) cardiac defibrillator; Z91.14 Patient's other noncompliance with medication regimen; Z79.02 Long term (current) use of antithrombotics/antiplatelets; Z79.82 Long term (current) use of aspirin; Z87.891 Personal history of nicotine dependence

== ENCOUNTER 2018-04-30 04:32 | Emergency (ER) | payer MEDICARE, OTHER ==
[2018-04-30 04:46] VITALS: BMI 25.0
[2018-04-30 04:48] VITALS: TEMP 97.6; O2SAT 95
[2018-04-30] MEDS ORDERED: Albuterol-Ipratrop 3 mg / 0.5 (3 ml) UD IH STA (05:16)
--- NOTE | 2018-04-30 05:37 | ED PDOC ---
Arrival/HPI - General Historian: Patient - History of Present Illness Narrative History of Present Illness (Text): 04/30/18 05:18 62M w/ a PMH of HTN, HLD, Hypothyroidism CAD s/p stents x6 2015, PVD, Aortic Aneurysm (02/2016), Pacemaker (01/2017), CHF (Last echo 12/2017 EF 15-20% severe hypokinesis, aortic regurgitation), presenting to ED w/ complaints of SOB x3-4 days. Patient reported that he stopped taking his lasix 3-4days ago and subsequently noticed increasing SOB as result. Patient reported he DC'd the RX as he had lost 8lb in one week. Patient complains of associated BANDA when ambulating from parking lot to office. Patient also complains of wheezing. Does not voice complaints of: headache, dizziness, visual disturbances, cough, orthopnea, swelling, chest pain, palpitations, abdominal pain, n/v/d/c, urinary symptoms Cardio: Tramaine PMD: Dedousis Home Rx: Metoprolol, Lisinopril, Statin, Lasix Former smoker quit 10 years ago - 60 pack years Denies EtOH/ Illicit Drugs Time/Duration: Prior to Arrival, < week Symptom Onset: Gradual Symptom Course: Worsening <Judson Hunter - Last Filed: 04/30/18 06:42> <Keith Tucker - Last Filed: 05/03/18 18:30> - General Chief Complaint: Shortness Of Breath Time Seen by Provider: 04/30/18 04:56 Past Medical History - Provider Review Nursing Documentation Reviewed: Yes - Infectious Disease Hx of Infectious Diseases: None - Cardiac Hx Cardiac Disorders: Yes (mi 10/2015 tx at [facility]) Hx DE: Yes (10/2015 with 6 stents and pacemaker) Hx Hypertension: Yes Hx Pacemaker: Yes (at [facility] 2017 dr harvey) Hx Peripheral Vascular Disease: Yes (with claudication) Other/Comment: left 5th toe was amputated, pt developed a micro-embolism in left 5th toe after pacemaker insertion,pt developed micro emboli in both feet ,was treated at [facility] for symptoms of sob pt stated "They gave me lasix through the iv for 5 1/2 hours sent me home, developed leg pain and cramping b/l soles of feet turned purple. Then I started to get ulcers." multiple foot ulcers which are now healed - Pulmonary Hx Respiratory Disorders: No - Neurological Hx Neurological Disorder: Yes Other/Comment: numbness to tip of both great toes - HEENT Hx HEENT Disorder: Yes (reading glasses) - Renal Hx Renal Disorder: No - Endocrine/Metabolic Hx Endocrine Disorders: No - Hematological/Oncological Hx Blood Disorders: No - Integumentary Hx Dermatological Disorder: Yes Other/Comment: healed wounds to feet, lost toenail to right 2nd toe, amputation healed left 5th toe, great toes b/l healed just residual numbness, slight dry skin to b/l feet - Musculoskeletal/Rheumatological Hx Falls: No - Gastrointestinal Hx Gastrointestinal Disorders: No - Genitourinary/Gynecological Hx Genitourinary Disorders: No - Psychiatric Hx Psychophysiologic Disorder: No Hx Substance Use: No - Surgical History Hx Coronary Stent: Yes (x6) Other/Comment: amputation left 5th toe, pacemaker 2017, cardiac stents x6 2016 - Anesthesia Hx Anesthesia Reactions: No Hx Malignant Hyperthermia: No <Judson Hunter - Last Filed: 04/30/18 06:42> Family/Social History - Physician Review Nursing Documentation Reviewed: Yes Family/Social History: Unknown Family HX Smoking Status: Former Smoker Hx Alcohol Use: No Hx Substance Use: No <Judson Hunter - Last Filed: 04/30/18 06:42> Allergies/Home Meds <Judson Hunter - Last Filed: 04/30/18 06:42> <Keith Tucker - Last Filed: 05/03/18 18:30> Allergies/Adverse Reactions: Allergies No Known Allergies Allergy (Verified 12/22/17 07:41) Home Medications: Home Meds Medication Instructions Recorded Confirmed Atorvastatin [Lipitor] 20 mg PO DAILY 04/30/18 04/30/18 Lisinopril [Zestril] 10 mg PO DAILY 04/30/18 04/30/18 Review of Systems - Review of Systems Constitutional: Normal Eyes: Normal ENT: Normal Respiratory: SOB, Wheezing. absent: Cough, Sputum Cardiovascular: BANDA. absent: Chest Pain, Palpitations, Edema, Orthopnea Gastrointestinal: Normal Genitourinary Male: Normal Musculoskeletal: Normal Skin: Normal Neurological: Normal Endocrine: Normal Hemo/Lymphatic: Normal Psychiatric: Normal <Judson Hunter - Last Filed: 04/30/18 06:42> Physical Exam Vital Signs Temp Pulse Resp BP Pulse Ox 04/30/18 04:47 97.6 F 91 H 18 151/87 H 95 Temperature: Afebrile Blood Pressure: Normal Pulse: Regular Respiratory Rate: Normal Appearance: Positive for: Well-Appearing, Non-Toxic, Comfortable Pain Distress: None Mental Status: Positive for: Alert and Oriented X 3 - Systems Exam Head: Present: Atraumatic, Normocephalic Pupils: Present: PERRL Extroacular Muscles: Present: EOMI Mouth: Present: Moist Mucous Membranes Respiratory/Chest: Present: Wheezes, Rhonchi Cardiovascular: Present: Regular Rate and Rhythm, Normal S1, S2 Abdomen: No: Tenderness, Distention, Peritoneal Signs Upper Extremity: Present: Normal Inspection. No: Edema Lower Extremity: Present: NORMAL PULSES, Capillary Refill < 2 s, Other (L toe 5th digit amputated). No: Edema Neurological: Present: GCS=15, Speech Normal Skin: Present: Warm, Dry, Normal Color Psychiatric: Present: Alert, Oriented x 3 <Judson Hunter - Last Filed: 04/30/18 06:42> Vital Signs Temp Pulse Resp BP Pulse Ox 04/30/18 05:40 151/87 H 04/30/18 04:47 97.6 F 91 H 18 151/87 H 95 <Keith Tucker - Last Filed: 05/03/18 18:30> Medical Decision Making ED Course and Treatment: 04/30/18 05:41 62M w/ PMH of CHF recently stopped taking lasix presenting with complaints of shortness of breath + wheezing NO fevers/chills reported; suspect SOB/BANDA 2/2 CHF exacerbation Wheezes on exam; suspect mild COPD exacerbation 2/2 CHF Plan: CBC/CMP BNP TROP EKG CXR Lasix Duoneb Progress Note: BNP elevated - expected given DC of Lasix TROP wnl CXR some congestive changes appreciated Patient responded well to duoneb treatment; wheezing significantly diminished Crackles still present Patient is comfortable w/ diuresis at home w/ outpt follow up w/ PMD as well as research biologist Dr. Redd Re-evaluation Time: 06:50 Reassessment Condition: Improved - RAD Interpretation Radiology Orders: 04/30/18 05:16 CHEST PORTABLE [RAD] Stat - EKG Interpretation EKG Interpretation (Text): 04/30/18 05:49 EKG is NSR at 89/min w/ PVCs; Nonspecific ST/T wave changes - Medication Orders Current Medication Orders: Albuterol/Ipratropium (Duoneb 3 Mg/0.5 Mg (3 Ml) Ud) 3 ml IH STAT STA Stop: 04/30/18 05:17 Furosemide (Lasix) 40 mg IVP STAT STA Stop: 04/30/18 05:17 <Judson Hunter - Last Filed: 04/30/18 06:42> ED Course and Treatment: Impression: Pt seen and evaluated with medical equipment repairer. Aware and agree with HPI, clinical findings, plan, and management. Pt, whose past medical history includes hypertension, hyperlipidemia, hypothyroidism, CAD s/p 6 stents, peripheral vascular disease, aortic aneurysm, pacemaker, and CHF, presented for shortness of breath x 3-4 days. Plan: -- EKG -- Chest X-ray -- Labs, troponin, BNP -- Rapid influenza -- Duoneb -- Lasix -- Reassess and disposition - Lab Interpretations Lab Results: Total Bilirubin 0.9 mg/dL (0.2-1.3) 04/30/18 05:30 AST 46 U/L (17-59) 04/30/18 05:30 ALT 50 U/L (7-56) 04/30/18 05:30 Alkaline Phosphatase 80 U/L (38-126) 04/30/18 05:30 Total Protein 7.7 g/dL (5.8-8.3) 04/30/18 05:30 Albumin 4.2 g/dL (3.0-4.8) 04/30/18 05:30 Globulin 3.4 gm/dL 04/30/18 05:30 Albumin/Globulin Ratio 1.2 (1.1-1.8) 04/30/18 05:30 - RAD Interpretation Radiology Orders: 04/30/18 05:16 CHEST PORTABLE [RAD] Stat - Medication Orders Current Medication Orders: Discontinued Medications Albuterol/Ipratropium (Duoneb 3 Mg/0.5 Mg (3 Ml) Ud) 3 ml IH STAT STA Stop: 04/30/18 05:17 Last Admin: 04/30/18 05:40 Dose: 3 ml Furosemide (Lasix) 40 mg IVP STAT STA Stop: 02/28/19 05:17 Last Admin: 04/30/18 05:40 Dose: 40 mg MAR Blood Pressure Document 04/30/18 05:40 JOL (Rec: 04/30/18 05:51 [id number]) Blood Pressure Blood Pressure (100/60-150/90) 151/87 IVP Administration Document 04/30/18 05:40 JOL (Rec: 04/30/18 05:51 [id number]) Charges for Administration # of IVP Administrations 1 <Keith Tucker - Last Filed: 05/03/18 18:30> - PA / INDUSTRIAL SAFETY AND HEALTH MANAGER / Resident Statement / has reviewed & agrees with the documentation as recorded. / has examined the patient and agrees with the treatment plan. <Keith Tucker - Last Filed: 05/03/18 18:30> Disposition/Present on Arrival - Present on Arrival Any Indicators Present on Arrival: No History of DVT/PE: No History of Uncontrolled Diabetes: No Urinary Catheter: No History of Decub. Ulcer: No History Surgical Site Infection Following: None - Disposition Have Diagnosis and Disposition been Completed?: Yes Disposition Time: 06:43 Patient Plan: Discharge <Judson Hunter - Last Filed: 04/30/18 06:42> <Keith Tucker - Last Filed: 05/03/18 18:30> - Disposition Diagnosis: CHF (congestive heart failure) Disposition: HOME/ ROUTINE Condition: GOOD Discharge Instructions (ExitCare): Heart Failure (ED) Prescriptions: Albuterol HFA [Ventolin HFA 90 mcg/actuation (8 g)] 2 puff IH Q4H PRN #1 inhaler PRN Reason: Wheezing Furosemide [Lasix] 20 mg PO BID #20 tablet Referrals: Keith Santos MD [Primary Care Provider] - Follow up with primary Tay Redd MD [Staff Provider] - Follow up with primary Forms: [employer] (Eritrean)
[2018-04-30 06:03] LABS: BASO # 0.04 K/mm3 (0.0-2.0); BASO % 0.4 % (0.0-3.0); EOS # 0.2 (0.0-0.7); EOS % 1.9 % (1.5-5.0); HEMOGLOBIN 14.3 g/dL (14.0-18.0); LYMPH # 2.6 (1.2-3.4); LYMPH % 23.2 % (22.0-35.0); MEAN CELL VOLUME 96.7 fl (80.0-105.0); MEAN CORPUSCULAR HEMOGLOBIN 31.4 pg (25.0-35.0); MEAN CORPUSCULAR HGB CONC 32.5 g/dl (31.0-37.0); MONO # 0.7 (0.1-0.6); MONO % 6.1 % (1.0-6.0); PLATELET COUNT 133 10^3/uL (120.0-450.0); RBC 4.55 10^6/uL (3.5-6.1); RED CELL DISTRIBUTION WIDTH 14.5 % (11.5-14.5); WHITE BLOOD COUNT 11.2 10^3/uL (4.5-11.0)
[2018-04-30 06:09] LABS: ALB/GLOB RATIO 1.2 (1.1-1.8); ALBUMIN 4.2 g/dL (3.0-4.8); ALT/SGPT 50 U/L (7-56); AST/SGOT 46 U/L (17-59); BLOOD UREA NITROGEN 26 mg/dL (7-21); CALCIUM 9.1 mg/dL (8.4-10.5); GFR NON-AFRICAN AMERICAN 56
[2018-04-30 06:20] LABS: B-TYPE NATRIURETIC PEPTIDE 7320 pg/mL (0-450); TROPONIN I 0.02 ng/mL
[2018-04-30 06:35] VITALS: BP 130/77; PULSE 85; RESP 20
--- NOTE | 2018-04-30 08:35 | RAD ---
Date of service: 04/30/2018 HISTORY: SOB COMPARISON: Portable chest 12/22/2017. FINDINGS: LUNGS: No active pulmonary disease. PLEURA: No significant pleural effusion identified, no pneumothorax apparent. CARDIOVASCULAR: No aortic atherosclerotic calcification present. Cardiomegaly appears stable. No pulmonary vascular congestion. AICD/pacemaker reiterated. OSSEOUS STRUCTURES: No significant abnormalities. VISUALIZED UPPER ABDOMEN: Normal. OTHER FINDINGS: None. IMPRESSION: No interval acute cardiopulmonary disease appreciated. Cardiomegaly unchanged. AICD/Pacemaker again evident.
--- NOTE | 2018-04-30 09:17 | CARD ---
APPROVED REPORT Date of service: 04/30/2018 EKG Measurement Heart [id number] <Conclusion> Sinus rhythm with occasional premature ventricular complexes and fusion complexes Left atrial enlargement Left ventricular hypertrophy Anteroseptal infarct, age undetermined Abnormal ECG
== END 2018-04-30 07:05 | disposition home or self-care (01) ==
LOC: ED 04:32
DX: I11.0 Hypertensive heart disease with heart failure (principal); I50.9 Heart failure, unspecified; I25.10 Atherosclerotic heart disease of native coronary artery without angina pectoris; I25.2 Old myocardial infarction; E78.5 Hyperlipidemia, unspecified; Z95.5 Presence of coronary angioplasty implant and graft; Z95.0 Presence of cardiac pacemaker; Z87.891 Personal history of nicotine dependence
CPT/HCPCS: 71045; 80053; 83880; 84484; 85025; 87804; 93005; 94640; 96374; 99284; J1940

== ENCOUNTER 2018-05-11 06:40 | Outpatient (CLI) | payer MEDICARE, OTHER | END 2018-05-11 06:41 | disposition home or self-care (01) | LOC: CARDIO 06:40 | DX: I25.10 Atherosclerotic heart disease of native coronary artery without angina pectoris (principal) ==

== ENCOUNTER 2018-06-09 20:18 | Inpatient (IN) | payer MEDICARE, OTHER ==
[2018-06-09 20:18] VITALS: BMI 25.0
--- NOTE | 2018-06-09 20:44 | ED PDOC ---
Arrival/HPI - General Chief Complaint: Shortness Of Breath Time Seen by Provider: 06/09/18 20:26 Historian: Patient - History of Present Illness Narrative History of Present Illness (Text): 06/09/18 20:30 David aCrrington is a 62 year old male, whose past medical history includes hypertension, hyperlipidemia, hypothyroidism, CAD s/p 6 stents, peripheral vascular disease, aortic aneurysm, pacemaker, and CHF, who presents to the ED complaining of shortness of breath for the past 3 days. Patient states he used his inhaler pump at home with no significant improvement. Patient reports he has been non-compliant with his Lasix, states he stopped taking it because he "lost too much weight." Patient denies any fever, chills, chest pain, nausea, vomiting, diarrhea, urinary symptoms, back pain, neck pain, headache, dizziness, or any other complaints. Symptom Onset: Gradual Symptom Course: Unchanged Activities at Onset: Light Context: Home Past Medical History - Provider Review Nursing Documentation Reviewed: Yes - Infectious Disease Hx of Infectious Diseases: None - Cardiac Hx CT: Yes Hx Hypertension: Yes Hx Pacemaker: Yes - Pulmonary Hx Chronic Obstructive Pulmonary Disease (COPD): Yes - Neurological Hx Neurological Disorder: Yes Other/Comment: numbness to tip of both great toes - HEENT Hx HEENT Disorder: Yes (reading glasses) - Renal Hx Renal Disorder: No - Endocrine/Metabolic Hx Endocrine Disorders: No - Hematological/Oncological Hx Blood Disorders: No - Integumentary Hx Dermatological Disorder: Yes Other/Comment: healed wounds to feet, lost toenail to right 2nd toe, amputation healed left 5th toe, great toes b/l healed just residual numbness, slight dry skin to b/l feet - Musculoskeletal/Rheumatological Hx Falls: No - Gastrointestinal Hx Gastrointestinal Disorders: No - Genitourinary/Gynecological Hx Genitourinary Disorders: No - Psychiatric Hx Psychophysiologic Disorder: No Hx Substance Use: No - Surgical History Hx Cardiac Catheterization: Yes (stents x6) - Anesthesia Hx Anesthesia Reactions: No Hx Malignant Hyperthermia: No Family/Social History - Physician Review Nursing Documentation Reviewed: Yes Family/Social History: Unknown Family HX Smoking Status: Former Smoker Hx Alcohol Use: No Hx Substance Use: No Allergies/Home Meds Allergies/Adverse Reactions: Allergies No Known Allergies Allergy (Verified 06/09/18 20:25) Home Medications: Home Meds Medication Instructions Recorded Confirmed Atorvastatin [Lipitor] 20 mg PO DAILY 04/30/18 06/09/18 Lisinopril [Zestril] 10 mg PO DAILY 04/30/18 06/09/18 Review of Systems - Physician Review All systems were reviewed & negative as marked: Yes - Review of Systems Constitutional: Normal. absent: Fevers Eyes: Normal ENT: Normal Respiratory: SOB. absent: Cough Cardiovascular: Normal. absent: Chest Pain Gastrointestinal: Normal. absent: Abdominal Pain, Diarrhea, Nausea, Vomiting Genitourinary Male: Normal Musculoskeletal: Normal. absent: Neck Pain Skin: Normal. absent: Rash Neurological: Normal. absent: Headache, Dizziness Endocrine: Normal Hemo/Lymphatic: Normal Psychiatric: Normal Physical Exam Vital Signs Reviewed: Yes Vital Signs Temp Pulse Resp BP Pulse Ox 06/09/18 20:35 98.1 F 114 H 19 163/98 H 92 L Temperature: Afebrile Blood Pressure: Hypertensive Pulse: Regular Respiratory Rate: Normal Appearance: Positive for: Well-Appearing, Non-Toxic, Comfortable Pain Distress: None Mental Status: Positive for: Alert and Oriented X 3 - Systems Exam Head: Present: Atraumatic, Normocephalic Pupils: Present: PERRL Extroacular Muscles: Present: EOMI Conjunctiva: Present: Normal Mouth: Present: Moist Mucous Membranes Neck: Present: Normal Range of Motion Respiratory/Chest: Present: Rales. No: Respiratory Distress, Accessory Muscle Use Cardiovascular: Present: Regular Rate and Rhythm, Normal S1, S2. No: Murmurs Abdomen: No: Tenderness, Distention, Peritoneal Signs Back: Present: Normal Inspection. No: CVA Tenderness, Midline Tenderness Upper Extremity: Present: Normal Inspection. No: Cyanosis, Edema Lower Extremity: Present: Normal Inspection. No: Edema Neurological: Present: GCS=15, CN II-XII Intact, Speech Normal Skin: Present: Warm, Dry, Normal Color. No: Rashes Psychiatric: Present: Alert, Oriented x 3, Normal Insight, Normal Concentration Medical Decision Making ED Course and Treatment: 06/09/18 20:30 Impression: 62 year old male complaining of shortness of breath for the past 3 days. Plan: -- EKG -- Chest X-ray -- Labs, cardiac enzymes, BNP, VBG -- Lasix -- Reassess and disposition Prior Visits: Notes and results from previous visits were reviewed. Progress Notes: Reviewed EKG, sinus tachycardia at 112bpm. LVH. Non-specific ST/T wave changes. 06/09/18 21:05 Chest X-ray reviewed, consistent with CHF. 06/09/18 22:10 Case discussed with center medical director, who is aware and agrees with plan. - Lab Interpretations I have reviewed the lab results: Yes - RAD Interpretation Radiology Orders: 06/09/18 20:36 CHEST PORTABLE [RAD] Stat Garment Looper: ED Physician - EKG Interpretation Interpreted by ED Physician: Yes Type: 12 lead EKG - Scribe Statement The provider has reviewed the documentation as recorded by the Deionibe Sylvia Edmond Provider Scribe Attestation: All medical record entries made by the Scribe were at my direction and personally dictated by me. I have reviewed the chart and agree that the record accurately reflects my personal performance of the history, physical exam, medical decision making, and the department course for this patient. I have also personally directed, reviewed, and agree with the discharge instructions and disposition. Disposition/Present on Arrival - Present on Arrival Any Indicators Present on Arrival: No History of DVT/PE: No History of Uncontrolled Diabetes: No Urinary Catheter: No History of Decub. Ulcer: No History Surgical Site Infection Following: None - Disposition Have Diagnosis and Disposition been Completed?: Yes Diagnosis: CHF (congestive heart failure) Disposition: HOSPITALIZED Disposition Time: 22:10 Condition: FAIR
[2018-06-09 21:17] LABS: BASO # 0.04 K/mm3 (0.0-2.0); BASO % 0.4 % (0.0-3.0); EOS # 0.1 (0.0-0.7); EOS % 1.4 % (1.5-5.0); HEMOGLOBIN 13.3 g/dL (14.0-18.0); LYMPH # 1.9 (1.2-3.4); LYMPH % 19.2 % (22.0-35.0); MEAN CELL VOLUME 95.5 fl (80.0-105.0); MEAN CORPUSCULAR HEMOGLOBIN 31.4 pg (25.0-35.0); MEAN CORPUSCULAR HGB CONC 32.8 g/dl (31.0-37.0); MEAN PLATELET VOLUME 14.1 fl (7.0-11.0); MONO # 0.5 (0.1-0.6); MONO % 4.9 % (1.0-6.0); RBC 4.24 10^6/uL (3.5-6.1); RED CELL DISTRIBUTION WIDTH 14.3 % (11.5-14.5); WHITE BLOOD COUNT 10.1 10^3/uL (4.5-11.0)
[2018-06-09 21:20] LABS: VENOUS BLOOD GAS BASE EXCESS -2.2 mmol/L (0.0-2.0); VENOUS BLOOD GAS PO2 65 mm/Hg (30-55); VENOUS BLOOD PH 7.39 (7.32-7.43)
[2018-06-09 21:26] LABS: INR 1.22; PARTIAL THROMBOPLASTIN TIME 28.7 Seconds (26.9-38.3); PROTHROMBIN TIME 13.5 SECONDS (9.4-12.5)
[2018-06-09 21:27] LABS: ALB/GLOB RATIO 1.3 (1.1-1.8); ALBUMIN 4.2 g/dL (3.0-4.8); ALT/SGPT 34 U/L (7-56); AST/SGOT 29 U/L (17-59); BLOOD UREA NITROGEN 24 mg/dL (7-21); CALCIUM 9.1 mg/dL (8.4-10.5); GFR NON-AFRICAN AMERICAN > 60
[2018-06-09 21:39] LABS: B-TYPE NATRIURETIC PEPTIDE 10700 pg/mL (0-450); TROPONIN I 0.04 ng/mL
[2018-06-09] MEDS ORDERED: Nitroglycerin 2% Ointment Foilpak UD TOP STA (22:50)
[2018-06-09] MEDS ORDERED: Aspirin 325 mg EC Tablets PO STA (23:18)
[2018-06-09] MEDS ORDERED: Nitroglycerin 2% Ointment Foilpak UD TOP PRN (23:31)
--- NOTE | 2018-06-09 23:39 | CP.PCM.HP ---
<Jorge Parikh - Last Filed: 06/09/18 23:55> History of Present Illness - History of Present Illness History of Present Illness: PGY-[address] Muñoz Patient a 62 year old male with PMHx of medication noncomplaince, CHF w/ LVEF 25% (05/03/2016), PPM placement (01/2017), CAD s/p stents x 6 (2015), HTN, HLD, Hypothyroidism, aortic aneurysm (02/2016) who presents with BANDA x 3 days. Patient has history of medication noncompliance, states he intermittently stops taking his lasix "whenever I feel good". He says he stopped taking his lasix the past few days because he "was losing too much weight", states he was 168 lbs at home and then 158 lbs ~6-7 days later at his PMD's office. Patient has been taking home albuterol pump for the past few days with no relief of symptoms. His exertional symptoms have increased since last admission, stating he cannot walk more than a few feet without becoming short of breath. No fevers/chills, headaches, dizziness, changes in vision, chest pain, palpitations, paroxysmal nocturnal dyspnea, orthopnea, n/v/d/c, dysuria, or changes in stool. 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 The only meds he is currently actively taking are ASA 81 mg PO daily, synthroid 25 mcg PO daily, Lisinopril 10 mg PO daily, and Lipitor 40 mg PO daily. He states he has not taken Plavix or Toprol in over a year. Allergies: NKDA Social Hx: Former smoker-1ppd for several years, social drinker, denies illicit drug use FHx: unknown PMD: Dr. 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--last seen ~ 3 months ago Present on Admission - Present on Admission Any Indicators Present on Admission: No Review of Systems - Review of Systems All systems: reviewed and no additional remarkable complaints except Review of Systems: as per HPI Past Patient History - Infectious Disease Hx of Infectious Diseases: None - Past Social History Smoking Status: Former Smoker - CARDIAC Hx Heart Attack: Yes Hx Hypertension: Yes Hx Pacemaker: Yes - PULMONARY Hx Chronic Obstructive Pulmonary Disease (COPD): Yes - NEUROLOGICAL Hx Neurological Disorder: Yes Other/Comment: numbness to tip of both great toes - HEENT Hx HEENT Problems: Yes (reading glasses) - RENAL Hx Chronic Kidney Disease: No - ENDOCRINE/METABOLIC Hx Endocrine Disorders: No - HEMATOLOGICAL/ONCOLOGICAL Hx Blood Disorders: No - INTEGUMENTARY Hx Dermatological Problems: Yes Other/Comment: healed wounds to feet, lost toenail to right 2nd toe, amputation healed left 5th toe, great toes b/l healed just residual numbness, slight dry skin to b/l feet - MUSCULOSKELETAL/RHEUMATOLOGICAL Hx Falls: No - GASTROINTESTINAL Hx Gastrointestinal Disorders: No - GENITOURINARY/GYNECOLOGICAL Hx Genitourinary Disorders: No - PSYCHIATRIC Hx Psychophysiologic Disorder: No Hx Substance Use: No - SURGICAL HISTORY Hx Cardiac Catheterization: Yes (stents x6) - ANESTHESIA Hx Anesthesia Reactions: No Hx Malignant Hyperthermia: No Meds Allergies/Adverse Reactions: Allergies Allergy/AdvReac Type Severity Reaction Status Date / Time No Known Allergies Allergy Verified 06/09/18 20:25 Physical Exam - Constitutional Appears: No Acute Distress - Head Exam Head Exam: ATRAUMATIC, NORMAL INSPECTION, NORMOCEPHALIC - Eye Exam Eye Exam: EOMI, Normal appearance, PERRL Pupil Exam: NORMAL ACCOMODATION - ENT Exam ENT Exam: Mucous Membranes Moist, Normal Exam - Neck Exam Neck exam: Positive for: Full Rom, Normal Inspection - Respiratory Exam Respiratory Exam: Rales, NORMAL BREATHING PATTERN. absent: Accessory Muscle Use, Respiratory Distress - Cardiovascular Exam Cardiovascular Exam: Tachycardia, +S1, +S2 - GI/Abdominal Exam GI & Abdominal Exam: Normal Bowel Sounds, Soft. absent: Distended, Firm, Guarding, Rebound, Rigid, Tenderness - Extremities Exam Extremities exam: Positive for: normal capillary refill, normal inspection, pedal edema, pedal pulses present. Negative for: calf tenderness - Back Exam Back exam: NORMAL INSPECTION - Neurological Exam Neurological exam: Alert, Normal Gait, Oriented x3 - Psychiatric Exam Psychiatric exam: Normal Affect, Normal Mood - Skin Skin Exam: Dry, Intact, Normal Color, Warm Results - Vital Signs Recent Vital Signs: Last Vital Signs Temp 98.1 F 06/09/18 20:35 Pulse 100 H 06/09/18 22:18 Resp 18 06/09/18 22:18 BP 146/94 H 06/09/18 22:18 Pulse Ox 95 06/09/18 22:18 - Labs Result Diagrams: 06/09/18 21:10 06/09/18 21:10 Labs: Laboratory Results - last 24 hr 06/09/18 06/09/18 06/09/18 21:10 21:10 21:10 WBC 10.1 RBC 4.24 Hgb 13.3 L Hct 40.5 L MCV 95.5 MCH 31.4 MCHC 32.8 RDW 14.3 Plt Count 139 MPV 14.1 H Neut % (Auto) 74.1 H Lymph % (Auto) 19.2 L [place] % (Auto) 4.9 Eos % (Auto) 1.4 L Baso % (Auto) 0.4 Lymph # (Auto) 1.9 [place] # (Auto) 0.5 Eos # (Auto) 0.1 Baso # (Auto) 0.04 Absolute Neuts (auto) 7.49 H PT INR APTT pO2 65 H VBG pH 7.39 VBG pCO2 37.0 L VBG HCO3 22.4 VBG Total CO2 23.5 VBG O2 Sat (Calc) 94.3 H VBG Base Excess -2.2 L VBG Potassium 3.8 Sodium 140.0 139 Chloride 106.0 109 H Glucose 140 H Lactate 1.5 FiO2 21.0 Potassium 3.7 Carbon Dioxide 21 Anion Gap 14 BUN 24 H Creatinine 1.1 Est GFR ( Amer) > 60 Est GFR (Non-Af Amer) > 60 Random Glucose 136 H Calcium 9.1 Magnesium 2.0 Total Bilirubin 1.0 AST 29 ALT 34 Alkaline Phosphatase 73 Lactate Dehydrogenase 609 Total Creatine Kinase 85 Troponin I 0.04 D NT-Pro-B Natriuret Pep 43854 H Total Protein 7.4 Albumin 4.2 Globulin 3.2 Albumin/Globulin Ratio 1.3 Venous Blood Potassium 3.8 06/09/18 21:10 WBC RBC Hgb Hct MCV MCH MCHC RDW Plt Count MPV Neut % (Auto) Lymph % (Auto) [place] % (Auto) Eos % (Auto) Baso % (Auto) Lymph # (Auto) [place] # (Auto) Eos # (Auto) Baso # (Auto) Absolute Neuts (auto) PT 13.5 H INR 1.22 APTT 28.7 pO2 VBG pH VBG pCO2 VBG HCO3 VBG Total CO2 VBG O2 Sat (Calc) VBG Base Excess VBG Potassium Sodium Chloride Glucose Lactate FiO2 Potassium Carbon Dioxide Anion Gap BUN Creatinine Est GFR ( Amer) Est GFR (Non-Af Amer) Random Glucose Calcium Magnesium Total Bilirubin AST ALT Alkaline Phosphatase Lactate Dehydrogenase Total Creatine Kinase Troponin I NT-Pro-B Natriuret Pep Total Protein Albumin Globulin Albumin/Globulin Ratio Venous Blood Potassium Assessment & Plan - Assessment and Plan (Free Text) Assessment: 62 year old male with PMHx of medication noncomplaince, CHF w/ LVEF 25% (05/03/2016), PPM placement (01/2017), CAD s/p stents x 6 (2015), HTN, HLD, Hypothyroidism, aortic aneurysm (02/2016) who presents with BANDA x 3 days, nonco mpliance with medications. Plan: Acute/chronic HFrEF -BNP: 10,700 on admission -CXR: effusions noted -ECHO (05/11/2018): EF 18%; Dilated and severe LV hypokinesis. Moderately dilated LA. PPM in RV. No pulmonary HTN noted. -Nuclear stress test (05/2018): no acute findings -s/p Lasix 40 mg IVP x 1 in ED -strict I/Os -keep head of bed elevated 45 degrees -Lasix 40 mg IVP q12 la -Cardiology (Dr. Redd) consulted Abnormal EKG -sinus tachycardia @ 112 bpm, LVH, L atrial enlargement. Ischemic changes noted in anterolateral leads. -changes not noted in previous EKG -trop x 1 negative -f/u repeat trop -patient denies any active chest pain -will give metoprolol tartrate 25 mg PO x 1, ASA 325 mg PO x1, Nitropaste 2% to pical x1 -nitropaste q6 prn for chest pain Medication noncompliance -list of medications incomplete; pt states he has not taken plavix, toprol in over a year, intermittently stops taking lasix -counseling provided on importance of maintaining all medications as prescribed HTN -Lisinopril 10 mg PO daily Hx of CAD with 6 stents -ASA 81 mg PO daily -Plavix 75 mg PO daily -Metoprolol succinate 50 mg PO daily -Lipitor 40 mg PO HS HLD -f/u lipid panel -Lipitor 40 mg PO HS Hypothyroidism -f/u TSH/free T4 -Synthroid 25 mcg PO daily PPx, Diet, Disposition -DVT ppx: scds, lovenox -GI ppx: not indicated at this time -Diet: HHD -PT on board Case discussed with Dr. Wanda Parikh DO, PGY-1 <oNa Muñoz - Last Filed: 06/10/18 07:17> Results - Vital Signs Recent Vital Signs: Last Vital Signs Temp 97.7 F 06/10/18 06:00 Pulse 90 06/10/18 06:00 Resp 20 06/10/18 06:00 BP 128/89 06/10/18 06:00 Pulse Ox 97 06/10/18 06:00 - Labs Result Diagrams: 06/10/18 06:10 06/10/18 06:10 Labs: Laboratory Results - last 24 hr 06/09/18 06/09/18 06/09/18 21:10 21:10 21:10 WBC 10.1 RBC 4.24 Hgb 13.3 L Hct 40.5 L MCV 95.5 MCH 31.4 MCHC 32.8 RDW 14.3 Plt Count 139 MPV 14.1 H Neut % (Auto) 74.1 H Lymph % (Auto) 19.2 L [place] % (Auto) 4.9 Eos % (Auto) 1.4 L Baso % (Auto) 0.4 Lymph # (Auto) 1.9 [place] # (Auto) 0.5 Eos # (Auto) 0.1 Baso # (Auto) 0.04 Absolute Neuts (auto) 7.49 H PT INR APTT pO2 65 H VBG pH 7.39 VBG pCO2 37.0 L VBG HCO3 22.4 VBG Total CO2 23.5 VBG O2 Sat (Calc) 94.3 H VBG Base Excess -2.2 L VBG Potassium 3.8 Sodium 140.0 139 Chloride 106.0 109 H Glucose 140 H Lactate 1.5 FiO2 21.0 Potassium 3.7 Carbon Dioxide 21 Anion Gap 14 BUN 24 H Creatinine 1.1 Est GFR ( Amer) > 60 Est GFR (Non-Af Amer) > 60 Random Glucose 136 H Calcium 9.1 Magnesium 2.0 Total Bilirubin 1.0 AST 29 ALT 34 Alkaline Phosphatase 73 Lactate Dehydrogenase 609 Total Creatine Kinase 85 Troponin I 0.04 D NT-Pro-B Natriuret Pep 22104 H Total Protein 7.4 Albumin 4.2 Globulin 3.2 Albumin/Globulin Ratio 1.3 LDL Cholesterol Direct Free T4 Venous Blood Potassium 3.8 06/09/18 06/10/18 06/10/18 21:10 02:05 06:10 WBC 9.8 RBC 4.34 Hgb 13.6 L Hct 41.3 L MCV 95.2 MCH 31.3 MCHC 32.9 RDW 14.3 Plt Count 128 MPV 14.1 H Neut % (Auto) 67.2 Lymph % (Auto) 23.0 [place] % (Auto) 8.0 H Eos % (Auto) 1.4 L Baso % (Auto) 0.4 Lymph # (Auto) 2.3 [place] # (Auto) 0.8 H Eos # (Auto) 0.1 Baso # (Auto) 0.04 Absolute Neuts (auto) 6.57 H PT 13.5 H INR 1.22 APTT 28.7 pO2 VBG pH VBG pCO2 VBG HCO3 VBG Total CO2 VBG O2 Sat (Calc) VBG Base Excess VBG Potassium Sodium Chloride Glucose Lactate FiO2 Potassium Carbon Dioxide Anion Gap BUN Creatinine Est GFR ( Amer) Est GFR (Non-Af Amer) Random Glucose Calcium Magnesium Total Bilirubin AST ALT Alkaline Phosphatase Lactate Dehydrogenase Total Creatine Kinase Troponin I 0.05 D NT-Pro-B Natriuret Pep Total Protein Albumin Globulin Albumin/Globulin Ratio LDL Cholesterol Direct Free T4 Venous Blood Potassium 06/10/18 06/10/18 06/10/18 06:10 06:10 06:10 WBC RBC Hgb Hct MCV MCH MCHC RDW Plt Count MPV Neut % (Auto) Lymph % (Auto) [place] % (Auto) Eos % (Auto) Baso % (Auto) Lymph # (Auto) [place] # (Auto) Eos # (Auto) Baso # (Auto) Absolute Neuts (auto) PT INR APTT pO2 VBG pH VBG pCO2 VBG HCO3 VBG Total CO2 VBG O2 Sat (Calc) VBG Base Excess VBG Potassium Sodium Chloride Glucose Lactate FiO2 Potassium Carbon Dioxide Anion Gap BUN Creatinine Est GFR ( Amer) Est GFR (Non-Af Amer) Random Glucose Calcium Magnesium Total Bilirubin AST ALT Alkaline Phosphatase Lactate Dehydrogenase Total Creatine Kinase Troponin I 0.05 NT-Pro-B Natriuret Pep 75754 H Total Protein Albumin Globulin Albumin/Globulin Ratio LDL Cholesterol Direct 87 Free T4 1.14 Venous Blood Potassium Attending/Attestation - Attestation I have personally seen and examined this patient.: Yes I have fully participated in the care of the patient.: Yes I have reviewed all pertinent clinical information: Yes Notes (Text): 06/10/18 07:03 Pt seen with the nedical resident by the bedside. Case discussed in detail. Agree with documentation,assessment and plan of treatment.
[2018-06-10 00:37] VITALS: RESP 20
[2018-06-10] MEDS: Levothyroxine 25 MCG TAB PO SCH (05:32)
[2018-06-10 06:29] LABS: BASO # 0.04 K/mm3 (0.0-2.0); BASO % 0.4 % (0.0-3.0); EOS # 0.1 (0.0-0.7); EOS % 1.4 % (1.5-5.0); HEMOGLOBIN 13.6 g/dL (14.0-18.0); LYMPH # 2.3 (1.2-3.4); MEAN CELL VOLUME 95.2 fl (80.0-105.0); MEAN CORPUSCULAR HEMOGLOBIN 31.3 pg (25.0-35.0); MEAN CORPUSCULAR HGB CONC 32.9 g/dl (31.0-37.0); MEAN PLATELET VOLUME 14.1 fl (7.0-11.0); MONO # 0.8 (0.1-0.6); RBC 4.34 10^6/uL (3.5-6.1); RED CELL DISTRIBUTION WIDTH 14.3 % (11.5-14.5); WHITE BLOOD COUNT 9.8 10^3/uL (4.5-11.0)
[2018-06-10 06:53] LABS: B-TYPE NATRIURETIC PEPTIDE 13600 pg/mL (0-450)
[2018-06-10 06:55] LABS: LDL CHOLESTEROL 87 mg/dL (0-129)
[2018-06-10 07:00] LABS: FREE T4 1.14 ng/dL (0.78-2.19)
[2018-06-10 07:06] LABS: ALB/GLOB RATIO 1.3 (1.1-1.8); ALBUMIN 4.2 g/dL (3.0-4.8); ALT/SGPT 33 U/L (7-56); AST/SGOT 35 U/L (17-59); BLOOD UREA NITROGEN 25 mg/dL (7-21); CALCIUM 9.3 mg/dL (8.4-10.5); GFR NON-AFRICAN AMERICAN > 60; HDL CHOLESTEROL 40 mg/dL (29-60)
[2018-06-10] MEDS ORDERED: Primacor 1 mg/ml Inj (10 ml) IVP ONE (08:31)
--- NOTE | 2018-06-10 08:32 | CP.PCM.PCO ---
Physician Communication Note - Physician Communication Note Physician Communication Note: Primacor bolus/drip as per Dr. Redd
[2018-06-10] MEDS ORDERED: Potassium Chloride 20 mEq ER Tab PO ONE (09:03)
--- NOTE | 2018-06-10 09:43 | CARD ---
APPROVED REPORT Date of service: 06/10/2018 EKG Measurement Heart [id number] [id number] <Conclusion> Normal sinus rhythm with sinus arrhythmia Left atrial enlargement Anteroseptal infarct, age undetermined ST & T wave abnormality, consider lateral ischemia Abnormal ECG
--- NOTE | 2018-06-10 09:50 | CARD ---
APPROVED REPORT Date of service: 06/09/2018 EKG Measurement Heart [id number] <Conclusion> Sinus tachycardia Left atrial enlargement Left ventricular hypertrophy Cannot rule out Septal infarct, age undetermined ST & T wave abnormality, consider lateral ischemia Abnormal ECG
[2018-06-10] MEDS ORDERED: Metoprolol Succinate 50 mg XL Tab PO SCH (10:00)
--- NOTE | 2018-06-10 10:18 | RAD ---
Date of service: 06/09/2018 HISTORY: sob COMPARISON: 04/30/2018 TECHNIQUE: 1 view obtained. FINDINGS: LUNGS: No active pulmonary disease. PLEURA: No significant pleural effusion identified, no pneumothorax apparent. CARDIOVASCULAR: No aortic atherosclerotic calcification present. Moderate cardiomegaly and mild vascular congestion unchanged OSSEOUS STRUCTURES: No significant abnormalities. VISUALIZED UPPER ABDOMEN: Normal. OTHER FINDINGS: Dual lead pacemaker IMPRESSION: Moderate cardiomegaly and mild vascular congestion unchanged
--- NOTE | 2018-06-10 11:03 | CON ---
DATE: 06/10/2018 CARDIOLOGY CONSULTATION HISTORY: The patient is a 62-year-old male, who presents with progressive shortness of breath consistent with CHF. PAST MEDICAL HISTORY: His past medical history includes an old anterior wall WA treated emergently at [facility]. His last evaluation revealed an ejection fraction of 19%. In the hospital, he was noted to have an episode of a nonsustained VT. The patient is status post an ICD placed 2 years ago at [facility]. Currently, the patient denies angina. SOCIAL HISTORY: He denies smoking. REVIEW OF SYSTEMS: On 14-point review of systems, his CHF is better. No syncope. No loss of consciousness. No palpitations noted. PHYSICAL EXAMINATION: GENERAL: The patient is sitting up, in no acute distress. VITAL SIGNS: Blood pressure 128/89, the heart rate is in the 90's. NECK: Negative JVD. LUNGS: Without rales. CARDIAC: Heart rate S1, S2. EXTREMITIES: Without edema. LABORATORY DATA: Troponin is 0.05. The ProBNP is 1360. Hemoglobin is 13.6. EKG shows normal sinus rhythm with poor R-wave progression. BUN and magnesium are within normal limits. His last echocardiogram was in 05/2018, which revealed an ejection fraction of 18%. His stress test that was done also on the same day measured his EF to 19% with no new ischemic changes compared to his previous. IMPRESSION: 1. Acute systolic congestive heart failure. 2. End-stage ischemic dilated cardiomyopathy. 3. Status post implantable cardioverter-defibrillator placement. 4. History of ventricular tachycardia. 5. Old anterior wall myocardial infarction. 6. Multivessel coronary artery disease. RECOMMENDATIONS: Given these findings, we will start the patient on IV milrinone. We will begin loading with IV amiodarone. We will have his defibrillator interrogated. Tay Redd MD
[2018-06-10] MEDS: Metoprolol Succinate 50 mg XL Tab PO SCH (11:19)
[2018-06-10] MEDS: Enoxaparin 40 mg Syringe SC SCH (11:20)
[2018-06-10] MEDS: Milrinone 20mg/100ml D5W 100 ML IV PRN ×2 (11:38→19:40)
[2018-06-10] MEDS ORDERED: Nitroglycerin 2% Ointment Foilpak UD TOP SCH (12:00)
[2018-06-10] MEDS: Nitroglycerin 2% Ointment Foilpak UD TOP SCH ×3 (14:12→23:59)
--- NOTE | 2018-06-10 15:57 | CP.PCM.PN ---
<Gerald Celaya - Last Filed: 06/10/18 15:53> Subjective - Date & Time of Evaluation Date of Evaluation: 06/10/18 Time of Evaluation: 08:00 - Subjective Subjective: Gerald Celaya PGY-1 Progress Note for Hospitalist Service Patient seen and evaluated at bedside. Twenty beats of asymptomatic v-tach reported early this morning. Primacor bolus started. Patient denies chest pain, palpitations, shortness of breath. Patient reports he has not taken his medications due to loss of insurance, but he has regained his insurance recently. Objective - Vital Signs/Intake and Output Vital Signs (last 24 hours): Temp Pulse Resp BP Pulse Ox 97.6 F 89 20 102/65 97 06/10/18 12:00 06/10/18 14:00 06/10/18 12:00 06/10/18 14:10 06/10/18 06:00 Intake and Output: 06/10/18 06/10/18 06:59 18:59 Intake Total 120 Output Total 300 Balance -180 - Medications Medications: Current Medications Amiodarone HCl (Cordarone) 400 mg PO BRKDIN [facility] Aspirin (Aspirin Chewable) 81 mg PO DAILY [facility] Last Admin: 06/10/18 11:22 Dose: 81 mg Atorvastatin Calcium (Lipitor) 40 mg PO HS [facility] Clopidogrel Bisulfate (Plavix) 75 mg PO DAILY [facility] Last Admin: 06/10/18 11:19 Dose: 75 mg Enoxaparin Sodium (Lovenox) 40 mg SC DAILY [facility]; Protocol Last Admin: 06/10/18 11:20 Dose: 40 mg Furosemide (Lasix) 40 mg IVP Q12 [facility] Last Admin: 06/10/18 11:20 Dose: 40 mg Milrinone Lactate/Dextrose (Primacor 20mg/100ml D5w) 100 mls @ 8.165 mls/hr IV .[id number] PRN; Protocol PRN Reason: TITRATE PER MD ORDER Last Admin: 06/10/18 11:38 Dose: 0.375 mcg/kg/min, 8.165 mls/hr Levothyroxine Sodium (Synthroid) 25 mcg PO 0600 [facility] Last Admin: 06/10/18 05:32 Dose: 25 mcg Lisinopril (Zestril) 10 mg PO DAILY [facility] Last Admin: 06/10/18 11:28 Dose: 10 mg Metoprolol Succinate (Toprol Xl) 50 mg PO DAILY [facility] Last Admin: 06/10/18 11:19 Dose: 50 mg Nitroglycerin (Nitro-Bid 2% Oint) 1 ea TOP Q6 [facility] Last Admin: 06/10/18 14:12 Dose: 1 ea Pantoprazole Sodium (Protonix Ec Tab) 40 mg PO ACB [facility] - Labs Labs: 06/10/18 06:10 06/10/18 06:10 PT 13.5 SECONDS (9.4-12.5) H 06/09/18 21:10 INR 1.22 06/09/18 21:10 APTT 28.7 Seconds (26.9-38.3) 06/09/18 21:10 - Additional Findings Additional findings: - Constitutional Appears: No Acute Distress - Head Exam Head Exam: ATRAUMATIC, NORMAL INSPECTION, NORMOCEPHALIC - Eye Exam Eye Exam: EOMI, Normal appearance, PERRL Pupil Exam: NORMAL ACCOMODATION - ENT Exam ENT Exam: Mucous Membranes Moist, Normal Exam - Neck Exam Neck exam: Positive for: Full Rom, Normal Inspection - Respiratory Exam Respiratory Exam: Rales, NORMAL BREATHING PATTERN. absent: Accessory Muscle Use, Respiratory Distress - Cardiovascular Exam Cardiovascular Exam: Tachycardia, +S1, +S2 - GI/Abdominal Exam GI & Abdominal Exam: Normal Bowel Sounds, Soft. absent: Distended, Firm, Guarding, Rebound, Rigid, Tenderness - Extremities Exam Extremities exam: Positive for: normal capillary refill, normal inspection, pedal edema, pedal pulses present. Negative for: calf tenderness - Back Exam Back exam: NORMAL INSPECTION - Neurological Exam Neurological exam: Alert, Normal Gait, Oriented x3 - Psychiatric Exam Psychiatric exam: Normal Affect, Normal Mood - Skin Skin Exam: Dry, Intact, Normal Color, Warm Assessment and Plan - Assessment and Plan (Free Text) Assessment: 62 year old male with PMHx of medication noncomplaince, CHF w/ LVEF 25% (05/03/2016), PPM placement (01/2017), CAD s/p stents x 6 (2015), HTN, HLD, Hypothyroidism, aortic aneurysm (02/2016) who presents with shortness of breath and medication noncompliance. Plan: Acute on chronic HFrEF -BNP: 13,600 -CXR: B/L effusions noted, PPM/AICD noted in upper L chest -ECHO (05/11/2018): EF 18%; Dilated and severe LV hypokinesis. Moderately dilated LA. PPM in RV. No pulmonary HTN noted. -Nuclear stress test (05/2018): no acute findings -strict I/Os, keep head of bed elevated 45 degrees -Lasix 40 mg IVP q12 la -Cardiology (Dr. Redd) consulted - begin Primacor drip 0.375 mcg after bolus this AM -Tele monitoring Episodes of v-tach -Sinus tachycardia @ 112 bpm, LVH, L atrial enlargement. Ischemic changes noted in anterolateral leads. Changes not noted in previous EKG -Trop x 3 negative -Begin Amiodarone 400 mg BID -patient denies any active chest pain -nitropaste q6 prn for chest pain Medication noncompliance -Counseling provided on importance of maintaining all medications as prescribed HTN -C/W Lisinopril 10 mg PO daily Hx of CAD with 6 stents -ASA 81 mg PO daily -Plavix 75 mg PO daily -Metoprolol succinate 50 mg PO daily -Lipitor 40 mg PO HS HLD -lipid panel WNL -C/W Lipitor 40 mg PO HS Hypothyroidism -TSH 14.2, free T4 1.14 -C/W Synthroid 25 mcg PO daily PPx, Diet, Disposition -DVT ppx: scds, lovenox -GI ppx: PTX -Diet: HHD -PT on board Patient seen, case reviewed and plan approved by Dr. Diaz. Gerald Celaya, PGY-1 <Alisha Diaz - Last Filed: 06/10/18 16:21> Objective - Vital Signs/Intake and Output Vital Signs (last 24 hours): Temp Pulse Resp BP Pulse Ox 97.6 F 89 20 102/65 97 06/10/18 12:00 06/10/18 14:00 06/10/18 12:00 06/10/18 14:10 06/10/18 06:00 Intake and Output: 06/10/18 06/10/18 06:59 18:59 Intake Total 120 Output Total 300 Balance -180 - Medications Medications: Current Medications Amiodarone HCl (Cordarone) 400 mg PO BRKDIN [facility] Aspirin (Aspirin Chewable) 81 mg PO DAILY [facility] Last Admin: 06/10/18 11:22 Dose: 81 mg Atorvastatin Calcium (Lipitor) 40 mg PO HS [facility] Clopidogrel Bisulfate (Plavix) 75 mg PO DAILY [facility] Last Admin: 06/10/18 11:19 Dose: 75 mg Enoxaparin Sodium (Lovenox) 40 mg SC DAILY [facility]; Protocol Last Admin: 06/10/18 11:20 Dose: 40 mg Furosemide (Lasix) 40 mg IVP Q12 [facility] Last Admin: 06/10/18 11:20 Dose: 40 mg Milrinone Lactate/Dextrose (Primacor 20mg/100ml D5w) 100 mls @ 8.165 mls/hr IV .[id number] PRN; Protocol PRN Reason: TITRATE PER MD ORDER Last Admin: 06/10/18 11:38 Dose: 0.375 mcg/kg/min, 8.165 mls/hr Levothyroxine Sodium (Synthroid) 25 mcg PO 0600 [facility] Last Admin: 06/10/18 05:32 Dose: 25 mcg Lisinopril (Zestril) 10 mg PO DAILY [facility] Last Admin: 06/10/18 11:28 Dose: 10 mg Metoprolol Succinate (Toprol Xl) 50 mg PO DAILY [facility] Last Admin: 06/10/18 11:19 Dose: 50 mg Nitroglycerin (Nitro-Bid 2% Oint) 1 ea TOP Q6 [facility] Last Admin: 06/10/18 14:12 Dose: 1 ea Pantoprazole Sodium (Protonix Ec Tab) 40 mg PO ACB [facility] - Labs Labs: 06/10/18 06:10 06/10/18 06:10 PT 13.5 SECONDS (9.4-12.5) H 06/09/18 21:10 INR 1.22 06/09/18 21:10 APTT 28.7 Seconds (26.9-38.3) 06/09/18 21:10 Attending/Attestation - Attestation I have personally seen and examined this patient.: Yes I have fully participated in the care of the patient.: Yes I have reviewed all pertinent clinical information, including history, physical exam and plan: Yes Notes (Text): 06/10/18 16:17 62 year old male with past medical history of CHF (EF 25%) s/p PPM, CAD s/p stents, hypertension, hypothyroidism and history of medication noncompliance who presents with complaint of shortness of breath secondary to acute systolic CHF exacerbation. Started on iv lasix with some improvement of symptoms this morning. Earlier this morning he had nonsustained Vtach on telemonitor. He was seen by cardiology and started on amiodarone as well as primacor drip. He was counselled on medication compliance. He is on synthroid for history of hypothyroidism. Monitor TFTs closely while on amiodarone. Alisha Diaz MD Hospitalist.
[2018-06-11] MEDS: Levothyroxine 25 MCG TAB PO SCH (06:03)
[2018-06-11] MEDS: Nitroglycerin 2% Ointment Foilpak UD TOP SCH ×3 (06:03→17:43)
[2018-06-11 06:28] LABS: BASO # 0.07 K/mm3 (0.0-2.0); BASO % 0.8 % (0.0-3.0); EOS # 0.3 (0.0-0.7); EOS % 2.8 % (1.5-5.0); HEMOGLOBIN 13.8 g/dL (14.0-18.0); LYMPH # 2.2 (1.2-3.4); LYMPH % 24.9 % (22.0-35.0); MEAN CORPUSCULAR HEMOGLOBIN 31.5 pg (25.0-35.0); MEAN CORPUSCULAR HGB CONC 33.2 g/dl (31.0-37.0); MONO # 0.6 (0.1-0.6); MONO % 6.5 % (1.0-6.0); RBC 4.38 10^6/uL (3.5-6.1); RED CELL DISTRIBUTION WIDTH 14.2 % (11.5-14.5)
[2018-06-11] MEDS ORDERED: Pantoprazole 40 mg EC Tab PO SCH (07:30)
[2018-06-11 07:43] LABS: ALB/GLOB RATIO 1.3 (1.1-1.8); ALBUMIN 4.2 g/dL (3.0-4.8); CALCIUM 9.4 mg/dL (8.4-10.5)
[2018-06-11] MEDS ORDERED: Sodium Chloride 0.9% 500 ML IV SCH (08:45)
[2018-06-11] MEDS: Milrinone 20mg/100ml D5W 100 ML IV PRN (09:14)
[2018-06-11] MEDS ORDERED: Potassium Chloride 20 mEq/15 ml LIQ UD PO STA (09:16)
--- NOTE | 2018-06-11 09:24 | CP.PCM.PN ---
<Gerald Celaya - Last Filed: 06/11/18 11:25> Subjective - Date & Time of Evaluation Date of Evaluation: 06/11/18 Time of Evaluation: 07:00 - Subjective Subjective: Gerald Celaya PGY-1 Progress Note for Hospitalist Service Patient seen and evaluated at bedside. No acute events reported overnight. Currently on Primacor drip. Patient denies chest pain, palpitations, shortness of breath. Patient sitting up comfortably in bed. Objective - Vital Signs/Intake and Output Vital Signs (last 24 hours): Temp Pulse Resp BP Pulse Ox 97.2 F L 71 20 106/71 93 L 06/11/18 06:00 06/11/18 06:00 06/11/18 06:00 06/11/18 06:00 06/11/18 06:00 Intake and Output: 06/11/18 06/11/18 06:59 18:59 Intake Total 1876 Output Total 3250 Balance -1374 - Medications Medications: Current Medications Amiodarone HCl (Cordarone) 400 mg PO [facility]IN [facility] Last Admin: 06/10/18 17:38 Dose: 400 mg Aspirin (Aspirin Chewable) 81 mg PO DAILY [facility] Last Admin: 06/10/18 11:22 Dose: 81 mg Atorvastatin Calcium (Lipitor) 40 mg PO HS [facility] Last Admin: 06/10/18 21:47 Dose: 40 mg Clopidogrel Bisulfate (Plavix) 75 mg PO DAILY [facility] Last Admin: 06/10/18 11:19 Dose: 75 mg Enoxaparin Sodium (Lovenox) 40 mg SC DAILY [facility]; Protocol Last Admin: 06/10/18 11:20 Dose: 40 mg Milrinone Lactate/Dextrose (Primacor 20mg/100ml D5w) 100 mls @ 8.165 mls/hr IV .[id number] PRN; Protocol PRN Reason: TITRATE PER MD ORDER Last Admin: 06/10/18 19:40 Dose: 0.375 mcg/kg/min, 8.165 mls/hr Levothyroxine Sodium (Synthroid) 25 mcg PO 0600 [facility] Last Admin: 06/11/18 06:03 Dose: 25 mcg Lisinopril (Zestril) 10 mg PO DAILY [facility] Last Admin: 06/10/18 11:28 Dose: 10 mg Metoprolol Succinate (Toprol Xl) 50 mg PO DAILY [facility] Last Admin: 06/10/18 11:19 Dose: 50 mg Nitroglycerin (Nitro-Bid 2% Oint) 1 ea TOP Q6 [facility] Last Admin: 06/11/18 06:03 Dose: 1 ea Pantoprazole Sodium (Protonix Ec Tab) 40 mg PO ACB [facility] - Labs Labs: 06/11/18 05:30 06/11/18 05:30 PT 13.5 SECONDS (9.4-12.5) H 06/09/18 21:10 INR 1.22 06/09/18 21:10 APTT 28.7 Seconds (26.9-38.3) 06/09/18 21:10 - Additional Findings Additional findings: - Constitutional Appears: No Acute Distress - Head Exam Head Exam: ATRAUMATIC, NORMAL INSPECTION, NORMOCEPHALIC - Eye Exam Eye Exam: EOMI, Normal appearance, PERRL Pupil Exam: NORMAL ACCOMODATION - ENT Exam ENT Exam: Mucous Membranes Moist, Normal Exam - Neck Exam Neck exam: Positive for: Full Rom, Normal Inspection - Respiratory Exam Respiratory Exam: Rales, NORMAL BREATHING PATTERN. absent: Accessory Muscle Use, Respiratory Distress - Cardiovascular Exam Cardiovascular Exam: Tachycardia, +S1, +S2 - GI/Abdominal Exam GI & Abdominal Exam: Normal Bowel Sounds, Soft. absent: Distended, Firm, Guarding, Rebound, Rigid, Tenderness - Extremities Exam Extremities exam: Positive for: normal capillary refill, normal inspection, pedal edema, pedal pulses present. Negative for: calf tenderness - Back Exam Back exam: NORMAL INSPECTION - Neurological Exam Neurological exam: Alert, Normal Gait, Oriented x3 - Psychiatric Exam Psychiatric exam: Normal Affect, Normal Mood - Skin Skin Exam: Dry, Intact, Normal Color, Warm Assessment and Plan - Assessment and Plan (Free Text) Assessment: 62 year old male with PMHx of medication noncomplaince, CHF w/ LVEF 25% (05/03/2016), PPM placement (01/2017), CAD s/p stents x 6 (2015), HTN, HLD, Hypothyroidism, aortic aneurysm (02/2016) who presents with shortness of breath and medication noncompliance. Plan: Acute on chronic HFrEF -BNP: 13,600 -CXR: B/L effusions noted, PPM/AICD noted in upper L chest -ECHO (05/11/2018): EF 18%; Dilated and severe LV hypokinesis. Moderately dilated LA. PPM in RV. No pulmonary HTN noted. -Nuclear stress test (05/2018): no acute findings -strict I/Os, keep head of bed elevated 45 degrees -Lasix decreased to 40 mg PO -K repletion -Cardiology (Dr. Redd) consulted - continue Primacor drip 0.375 mcg -Tele monitoring Episodes of v-tach- resolved -Sinus tachycardia @ 112 bpm, LVH, L atrial enlargement. Ischemic changes noted in anterolateral leads. Changes not noted in previous EKG -Trop x 3 negative -Continue Amiodarone 200 mg BID -Patient denies any active chest pain -Nitropaste q6 prn for chest pain -Tele discontinued per cardio GLORY -Lasix decreased to 40 mg PO -Lisinopril on hold -Continue to monitor -Hold IVF due to poor EF Medication noncompliance -Counseling provided on importance of maintaining all medications as prescribed HTN -Hold Lisinopril 10 mg PO daily 2/2 GLORY Hx of CAD with 6 stents -ASA 81 mg PO daily -Plavix 75 mg PO daily -Metoprolol succinate 50 mg PO daily -Lipitor 40 mg PO HS HLD -Lipid panel WNL -C/W Lipitor 40 mg PO HS Hypothyroidism -TSH 14.2, free T4 1.14, Repeat TSH 17 -C/W Synthroid 25 mcg PO daily - Will monitor as o/p PPx, Diet, Disposition -DVT ppx: scds, lovenox -GI ppx: PTX -Diet: HHD -PT: HWS vs o/p cardiac rehab Patient seen, case reviewed and plan approved by Dr. Diaz. Gerald Celaya, PGY-1 <Alisha Diaz - Last Filed: 06/11/18 13:27> Objective - Vital Signs/Intake and Output Vital Signs (last 24 hours): Temp Pulse Resp BP Pulse Ox 97.5 F L 74 20 126/84 93 L 06/11/18 12:00 06/11/18 12:00 06/11/18 12:00 06/11/18 12:00 06/11/18 06:00 Intake and Output: 06/11/18 06/11/18 06:59 18:59 Intake Total 1876 100 Output Total 3250 Balance -1374 100 - Medications Medications: Current Medications Amiodarone HCl (Cordarone) 200 mg PO [facility] Aspirin (Aspirin Chewable) 81 mg PO DAILY [facility] Last Admin: 06/11/18 10:58 Dose: 81 mg Atorvastatin Calcium (Lipitor) 40 mg PO HS [facility] Last Admin: 06/10/18 21:47 Dose: 40 mg Enoxaparin Sodium (Lovenox) 40 mg SC DAILY [facility]; Protocol Last Admin: 06/11/18 10:59 Dose: 40 mg Furosemide (Lasix) 40 mg PO DAILY [facility] Last Admin: 06/11/18 10:59 Dose: 40 mg Levothyroxine Sodium (Synthroid) 25 mcg PO 0600 [facility] Last Admin: 06/11/18 06:03 Dose: 25 mcg Lisinopril (Zestril) 5 mg PO DAILY [facility] Metoprolol Succinate (Toprol Xl) 50 mg PO DAILY [facility] Last Admin: 06/11/18 10:58 Dose: 50 mg Nitroglycerin (Nitro-Bid 2% Oint) 1 ea TOP Q6 [facility] Last Admin: 06/11/18 12:14 Dose: 1 ea - Labs Labs: 06/11/18 05:30 06/11/18 05:30 PT 13.5 SECONDS (9.4-12.5) H 06/09/18 21:10 INR 1.22 06/09/18 21:10 APTT 28.7 Seconds (26.9-38.3) 06/09/18 21:10 Attending/Attestation - Attestation I have personally seen and examined this patient.: Yes I have fully participated in the care of the patient.: Yes I have reviewed all pertinent clinical information, including history, physical exam and plan: Yes Notes (Text): 06/11/18 13:24 62 year old male with past medical history of CHF (EF 25%) s/p PPM, CAD s/p stents, hypertension, hypothyroidism and history of medication noncompliance who presented with complaint of shortness of breath secondary to acute systolic CHF exacerbation. He was started on iv lasix and primacor drip with improvement of symptoms. Yesterday he had nonsustained Vtach on telemonitor and was started on amiodarone by cardiology. He is on synthroid for history of hypothyroidism. Recommended to monitor TFTs closely while on amiodarone. Today he is noted to have mild GLORY. Lasix switched to po and lisinopril is held for now. Primacor drip was discontinued. He was counselled on medication compliance. D/c planning. Alisha Diaz MD Hospitalist.
[2018-06-11] MEDS: Metoprolol Succinate 50 mg XL Tab PO SCH (10:58)
[2018-06-11] MEDS: Enoxaparin 40 mg Syringe SC SCH (10:59)
--- NOTE | 2018-06-11 11:56 | PN ---
DATE: 06/11/2018 SUBJECTIVE: The patient's breathing is stable. He denies shortness of breath. PHYSICAL EXAMINATION: VITAL SIGNS: Stable. NECK: Negative JVD. LUNGS: Clear to auscultation. HEART: S1, S2. EXTREMITIES: Without edema. LABORATORY DATA: BUN and creatinine is up to 32 and 1.6. Potassium is 3.8. IMPRESSION: 1. Resolution of congestive heart failure. 2. Prerenal azotemia. 3. Coronary artery disease. 4. Stable angina. 5. History of ventricular tachycardia. PLAN: Given these findings, we will replace his potassium, decrease his amiodarone to 200 b.i.d., decrease his lisinopril to 5 daily, we will change the Lasix 40 once a day p.o. From a cardiac perspective, the patient can be discharged. Followup and instructions have been given to the patient. We will continue monitoring his arrhythmias with his defibrillator through telephonic transmissions. Tay Redd MD
[2018-06-12] MEDS: Nitroglycerin 2% Ointment Foilpak UD TOP SCH (06:15)
[2018-06-12] MEDS: Levothyroxine 25 MCG TAB PO SCH (06:15)
[2018-06-12 06:59] LABS: BASO # 0.06 K/mm3 (0.0-2.0); BASO % 0.6 % (0.0-3.0); EOS # 0.3 (0.0-0.7); EOS % 2.7 % (1.5-5.0); HEMOGLOBIN 14.8 g/dL (14.0-18.0); LYMPH # 3.3 (1.2-3.4); LYMPH % 31.1 % (22.0-35.0); MEAN CELL VOLUME 95.5 fl (80.0-105.0); MEAN CORPUSCULAR HEMOGLOBIN 31.4 pg (25.0-35.0); MEAN CORPUSCULAR HGB CONC 32.9 g/dl (31.0-37.0); MONO # 0.7 (0.1-0.6); MONO % 6.3 % (1.0-6.0); RBC 4.71 10^6/uL (3.5-6.1); RED CELL DISTRIBUTION WIDTH 14.3 % (11.5-14.5); WHITE BLOOD COUNT 10.5 10^3/uL (4.5-11.0)
[2018-06-12 07:14] LABS: ALB/GLOB RATIO 1.3 (1.1-1.8); ALBUMIN 4.6 g/dL (3.0-4.8); CALCIUM 9.7 mg/dL (8.4-10.5)
[2018-06-12 08:45] VITALS: PULSE 89; TEMP 98; O2SAT 94
[2018-06-12] MEDS: Enoxaparin 40 mg Syringe SC SCH (09:44)
[2018-06-12] MEDS: Metoprolol Succinate 50 mg XL Tab PO SCH (09:45)
[2018-06-12 09:46] VITALS: BP 130/88
--- NOTE | 2018-06-12 13:30 | CP.PCM.DIS ---
<Gerald Celaya - Last Filed: 06/12/18 13:12> Provider - Provider Date of Admission: 06/09/18 22:36 Attending physician: Alisha Diaz MD Primary care physician: Dr. Santos Consults: 06/10/18 00:00 Cardiology Consult Routine Comment: Consulting Provider: Tay Redd Consulting Physician: Tay Redd Reason for Consult: med noncompliance, acute/chronic HFrEF Time Spent in preparation of Discharge (in minutes): 35 Hospital Course - Lab Results Lab Results: Most Recent Lab Values WBC 10.5 10^3/uL (4.5-11.0) 06/12/18 06:20 RBC 4.71 10^6/uL (3.5-6.1) 06/12/18 06:20 Hgb 14.8 g/dL (14.0-18.0) 06/12/18 06:20 Hct 45.0 % (42.0-52.0) 06/12/18 06:20 MCV 95.5 fl (80.0-105.0) 06/12/18 06:20 MCH 31.4 pg (25.0-35.0) 06/12/18 06:20 MCHC 32.9 g/dl (31.0-37.0) 06/12/18 06:20 RDW 14.3 % (11.5-14.5) 06/12/18 06:20 Plt Count 147 10^3/uL (120.0-450.0) 06/12/18 06:20 MPV 14.0 fl (7.0-11.0) H 06/12/18 06:20 Neut % (Auto) 59.3 % (50.0-68.0) 06/12/18 06:20 Lymph % (Auto) 31.1 % (22.0-35.0) 06/12/18 06:20 [place] % (Auto) 6.3 % (1.0-6.0) H 06/12/18 06:20 Eos % (Auto) 2.7 % (1.5-5.0) 06/12/18 06:20 Baso % (Auto) 0.6 % (0.0-3.0) 06/12/18 06:20 Lymph # (Auto) 3.3 (1.2-3.4) 06/12/18 06:20 [place] # (Auto) 0.7 (0.1-0.6) H 06/12/18 06:20 Eos # (Auto) 0.3 (0.0-0.7) 06/12/18 06:20 Baso # (Auto) 0.06 K/mm3 (0.0-2.0) 06/12/18 06:20 Absolute Neuts (auto) 6.25 (1.4-6.5) 06/12/18 06:20 PT 13.5 SECONDS (9.4-12.5) H 06/09/18 21:10 INR 1.22 06/09/18 21:10 APTT 28.7 Seconds (26.9-38.3) 06/09/18 21:10 pO2 65 mm/Hg (30-55) H 06/09/18 21:10 VBG pH 7.39 (7.32-7.43) 06/09/18 21:10 VBG pCO2 37.0 (40-60) L 06/09/18 21:10 VBG HCO3 22.4 mmol/l (21-28) 06/09/18 21:10 VBG Total CO2 23.5 mmol.L (22-28) 06/09/18 21:10 VBG O2 Sat (Calc) 94.3 % (40-65) H 06/09/18 21:10 VBG Base Excess -2.2 mmol/L (0.0-2.0) L 06/09/18 21:10 VBG Potassium 3.8 mmol/L (3.6-5.2) 06/09/18 21:10 Sodium 140.0 mmol/L (132-148) 06/09/18 21:10 Chloride 106.0 mmol/L (98-107) 06/09/18 21:10 Glucose 140 mg/dl (75-110) H 06/09/18 21:10 Lactate 1.5 mmol/L (0.7-2.1) 06/09/18 21:10 FiO2 21.0 % 06/09/18 21:10 Sodium 140 mmol/L (132-148) 06/12/18 06:20 Potassium 4.3 mmol/L (3.6-5.0) 06/12/18 06:20 Chloride 103 mmol/L (98-107) 06/12/18 06:20 Carbon Dioxide 27 mmol/L (21-33) 06/12/18 06:20 Anion Gap 15 (10-20) 06/12/18 06:20 BUN 35 mg/dL (7-21) H 06/12/18 06:20 Creatinine 1.6 mg/dl (0.8-1.5) H 06/12/18 06:20 Est GFR ( Amer) 53 06/12/18 06:20 Est GFR (Non-Af Amer) 44 06/12/18 06:20 POC Glucose (mg/dL) 151 mg/dL (65-110) H 06/09/18 20:41 Random Glucose 111 mg/dL (70-110) H 06/12/18 06:20 Hemoglobin A1c 5.9 % (4.2-6.5) 06/10/18 06:10 Calcium 9.7 mg/dL (8.4-10.5) 06/12/18 06:20 Phosphorus 3.7 mg/dL (2.5-4.5) 06/10/18 06:10 Magnesium 2.1 mg/dL (1.7-2.2) 06/10/18 06:10 Total Bilirubin 0.9 mg/dL (0.2-1.3) 06/12/18 06:20 AST 26 U/L (17-59) 06/12/18 06:20 ALT 25 U/L (7-56) 06/12/18 06:20 Alkaline Phosphatase 73 U/L (38-126) 06/12/18 06:20 Lactate Dehydrogenase 609 U/L (333-699) 06/09/18 21:10 Total Creatine Kinase 85 U/L (35-230) 06/09/18 21:10 Troponin I 0.05 ng/mL 06/10/18 06:10 NT-Pro-B Natriuret Pep 85584 pg/mL (0-450) H 06/10/18 06:10 Total Protein 8.2 g/dL (5.8-8.3) 06/12/18 06:20 Albumin 4.6 g/dL (3.0-4.8) 06/12/18 06:20 Globulin 3.6 gm/dL 06/12/18 06:20 Albumin/Globulin Ratio 1.3 (1.1-1.8) 06/12/18 06:20 Triglycerides 84 mg/dL (35-160) 06/10/18 06:10 Cholesterol 144 mg/dL (130-200) 06/10/18 06:10 LDL Cholesterol Direct 87 mg/dL (0-129) 06/10/18 06:10 HDL Cholesterol 40 mg/dL (29-60) 06/10/18 06:10 Free T4 1.14 ng/dL (0.78-2.19) 06/10/18 06:10 TSH 3rd Generation 17.00 mIU/mL (0.46-4.68) H 06/11/18 07:00 Venous Blood Potassium 3.8 mmol/L (3.6-5.2) 06/09/18 21:10 - Hospital Course Hospital Course: Gerald Celaya, PGY-1 Discharge Summary for Hospitalist Service 62 year old male with history of medication noncomplaince, CHF w/ LVEF 18%, AICD/PPM placement, CAD s/p stents x 6, HTN, HLD, Hypothyroidism, peripheral vascular disease, and aortic aneurysm presented with shortness of br eath for 3 days, likely secondary to acute systolic CHF exacerbation. Patient has history of medication noncompliance and stated that he intermittently stops taking his Lasix. Patient stated he did not take his medications due to loss of insurance, though he recently regained insurance. Patient was admitted to telemetry and cardiology (Dr. Redd) was consulted. EKG on admission showed sinus tachycardia @ 112 bpm, with ischemic changes noted in anterolateral leads (not seen in previous EKG). Troponinsx3 were negative. BNP was 10,700 on admission and saúl to 13,600. CXR showed moderate cardiomegaly and mild vascular congestion unchanged from previous imaging. One dose of Lasix 40 mg IVP was given in ED and was continued q12. Patient was given one-time dose of metoprolol tartrate 25 mg PO, ASA 325mg, Nitropaste 2% topical in the ED. Patient was put on DVT ppx with SCDs and Lovenox 40mg. Patient was continued with ASA 81mg qd, Metoprolol succinate 50mg PO qd, Lipitor 40mg PO qd. Twenty beats of asymptomatic VTach were reported and patient was started on Primacor 0.375mcg bolus and drip per Dr. Redd. Patient was also started on Amiodarone 400 mg BID for nonsustained v-tach. He showed improvement of symptoms. Patient's TSH was 14.2, rising to 17, and he was placed on synthroid 25mcg PO for management of hypothyroidism. Patient developed mild GLORY with BUN 32 and Cr 1.6. Lasix was switched to PO and decreased to 40mg PO and patient was repleted on potassium. Lisinopril 10mg PO qd was placed on hold and IVF was held due to poor EF. Primacor drip and Tele were discontinued as per cardio. PT was consulted and recommended Home with services with outpatient cardiac rehab, which case management has set up. Medication compliance was discussed at length with patient. Patient was discha rged with Ventolin, Amiodarone, ASA, Lipitor, Lasix, Synthroid, Lisinopril and Toprol XL. Patient is to follow up next week with PMD Dr Santos and with Dr. Redd in 2-3 weeks. Patient was instructed to follow up TFTs and LFTs due to Amiodarone. Patient course was discussed with patient at length, and follow up questions were answered fully and to patient satisfaction. For complete details, please see EMR. Patient seen, case reviewed and plan approved by Dr. Diaz. Discharge Exam - Additional Findings Additional findings: - Constitutional Appears: No Acute Distress - Head Exam Head Exam: ATRAUMATIC, NORMAL INSPECTION, NORMOCEPHALIC - Eye Exam Eye Exam: EOMI, Normal appearance, PERRL Pupil Exam: NORMAL ACCOMODATION - ENT Exam ENT Exam: Mucous Membranes Moist, Normal Exam - Neck Exam Neck exam: Positive for: Full Rom, Normal Inspection - Respiratory Exam Respiratory Exam: Rales, NORMAL BREATHING PATTERN. absent: Accessory Muscle Use, Respiratory Distress - Cardiovascular Exam Cardiovascular Exam: Tachycardia, +S1, +S2 - GI/Abdominal Exam GI & Abdominal Exam: Normal Bowel Sounds, Soft. absent: Distended, Firm, Guarding, Rebound, Rigid, Tenderness - Extremities Exam Extremities exam: Positive for: normal capillary refill, normal inspection, pedal edema, pedal pulses present. Negative for: calf tenderness - Back Exam Back exam: NORMAL INSPECTION - Neurological Exam Neurological exam: Alert, Normal Gait, Oriented x3 - Psychiatric Exam Psychiatric exam: Normal Affect, Normal Mood - Skin Skin Exam: Dry, Intact, Normal Color, Warm Discharge Plan - Discharge Medications Prescriptions: Albuterol HFA [Ventolin HFA 90 mcg/actuation (8 g)] 2 puff IH Q4H PRN #1 inhaler PRN Reason: Wheezing Amiodarone [Cordarone] 200 mg PO BRKDIN #30 tab Aspirin [Aspirin Chewable] 81 mg PO DAILY #14 chew Atorvastatin [Lipitor] 40 mg PO HS #14 tab Furosemide [Lasix] 40 mg PO DAILY #14 tab Levothyroxine [Synthroid] 25 mcg PO 0600 #14 tab Lisinopril [Zestril] 5 mg PO DAILY #14 tab Metoprolol Succinate XL [Toprol XL] 50 mg PO DAILY #30 tab - Follow Up Plan Condition: FAIR Disposition: HOME/ ROUTINE Instructions: Surgical Procedures for Congestive Heart Failure (CHF), Heart Failure (DC), Pulmonary Edema (DC) Additional Instructions: You have been given all medications at bedside, including Ventolin inhaler, Amiodarone 200 BID, ASA 81 mg, Lipitor 40 mg, Lasix 40 mg, Synthroid 25 mg, Zestril 5, Toprol 50 mg. It is important that you take all medications regularly as prescribed. Follow up with Primary care doctor Dr Santos within 3-5 days. Please follow up with Dr. Redd within 1-2 weeks. You will need to repeat blood work for elevated TSH. Amiodarone was started, so please follow up with your primary care provider to monitor thyroid and liver function tests. Please avoid all alcohol and illicit drug use. Should symptoms worsen, please visit nearest emergency department. Referrals: Tay Redd MD [Staff Provider] - <Alisha Diaz - Last Filed: 06/12/18 14:47> Provider - Provider Date of Admission: 06/09/18 22:36 Attending physician: Alisha Diaz MD Consults: 06/10/18 00:00 Cardiology Consult Routine Comment: Consulting Provider: Tay Redd Consulting Physician: Tay Redd Reason for Consult: med noncompliance, acute/chronic HFrEF Hospital Course - Lab Results Lab Results: Most Recent Lab Values WBC 10.5 10^3/uL (4.5-11.0) 06/12/18 06:20 RBC 4.71 10^6/uL (3.5-6.1) 06/12/18 06:20 Hgb 14.8 g/dL (14.0-18.0) 06/12/18 06:20 Hct 45.0 % (42.0-52.0) 06/12/18 06:20 MCV 95.5 fl (80.0-105.0) 06/12/18 06:20 MCH 31.4 pg (25.0-35.0) 06/12/18 06:20 MCHC 32.9 g/dl (31.0-37.0) 06/12/18 06:20 RDW 14.3 % (11.5-14.5) 06/12/18 06:20 Plt Count 147 10^3/uL (120.0-450.0) 06/12/18 06:20 MPV 14.0 fl (7.0-11.0) H 06/12/18 06:20 Neut % (Auto) 59.3 % (50.0-68.0) 06/12/18 06:20 Lymph % (Auto) 31.1 % (22.0-35.0) 06/12/18 06:20 [place] % (Auto) 6.3 % (1.0-6.0) H 06/12/18 06:20 Eos % (Auto) 2.7 % (1.5-5.0) 06/12/18 06:20 Baso % (Auto) 0.6 % (0.0-3.0) 06/12/18 06:20 Lymph # (Auto) 3.3 (1.2-3.4) 06/12/18 06:20 [place] # (Auto) 0.7 (0.1-0.6) H 06/12/18 06:20 Eos # (Auto) 0.3 (0.0-0.7) 06/12/18 06:20 Baso # (Auto) 0.06 K/mm3 (0.0-2.0) 06/12/18 06:20 Absolute Neuts (auto) 6.25 (1.4-6.5) 06/12/18 06:20 PT 13.5 SECONDS (9.4-12.5) H 06/09/18 21:10 INR 1.22 06/09/18 21:10 APTT 28.7 Seconds (26.9-38.3) 06/09/18 21:10 pO2 65 mm/Hg (30-55) H 06/09/18 21:10 VBG pH 7.39 (7.32-7.43) 06/09/18 21:10 VBG pCO2 37.0 (40-60) L 06/09/18 21:10 VBG HCO3 22.4 mmol/l (21-28) 06/09/18 21:10 VBG Total CO2 23.5 mmol.L (22-28) 06/09/18 21:10 VBG O2 Sat (Calc) 94.3 % (40-65) H 06/09/18 21:10 VBG Base Excess -2.2 mmol/L (0.0-2.0) L 06/09/18 21:10 VBG Potassium 3.8 mmol/L (3.6-5.2) 06/09/18 21:10 Sodium 140.0 mmol/L (132-148) 06/09/18 21:10 Chloride 106.0 mmol/L (98-107) 06/09/18 21:10 Glucose 140 mg/dl (75-110) H 06/09/18 21:10 Lactate 1.5 mmol/L (0.7-2.1) 06/09/18 21:10 FiO2 21.0 % 06/09/18 21:10 Sodium 140 mmol/L (132-148) 06/12/18 06:20 Potassium 4.3 mmol/L (3.6-5.0) 06/12/18 06:20 Chloride 103 mmol/L (98-107) 06/12/18 06:20 Carbon Dioxide 27 mmol/L (21-33) 06/12/18 06:20 Anion Gap 15 (10-20) 06/12/18 06:20 BUN 35 mg/dL (7-21) H 06/12/18 06:20 Creatinine 1.6 mg/dl (0.8-1.5) H 06/12/18 06:20 Est GFR ( Amer) 53 06/12/18 06:20 Est GFR (Non-Af Amer) 44 06/12/18 06:20 POC Glucose (mg/dL) 151 mg/dL (65-110) H 06/09/18 20:41 Random Glucose 111 mg/dL (70-110) H 06/12/18 06:20 Hemoglobin A1c 5.9 % (4.2-6.5) 06/10/18 06:10 Calcium 9.7 mg/dL (8.4-10.5) 06/12/18 06:20 Phosphorus 3.7 mg/dL (2.5-4.5) 06/10/18 06:10 Magnesium 2.1 mg/dL (1.7-2.2) 06/10/18 06:10 Total Bilirubin 0.9 mg/dL (0.2-1.3) 06/12/18 06:20 AST 26 U/L (17-59) 06/12/18 06:20 ALT 25 U/L (7-56) 06/12/18 06:20 Alkaline Phosphatase 73 U/L (38-126) 06/12/18 06:20 Lactate Dehydrogenase 609 U/L (333-699) 06/09/18 21:10 Total Creatine Kinase 85 U/L (35-230) 06/09/18 21:10 Troponin I 0.05 ng/mL 06/10/18 06:10 NT-Pro-B Natriuret Pep 78882 pg/mL (0-450) H 06/10/18 06:10 Total Protein 8.2 g/dL (5.8-8.3) 06/12/18 06:20 Albumin 4.6 g/dL (3.0-4.8) 06/12/18 06:20 Globulin 3.6 gm/dL 06/12/18 06:20 Albumin/Globulin Ratio 1.3 (1.1-1.8) 06/12/18 06:20 Triglycerides 84 mg/dL (35-160) 06/10/18 06:10 Cholesterol 144 mg/dL (130-200) 06/10/18 06:10 LDL Cholesterol Direct 87 mg/dL (0-129) 06/10/18 06:10 HDL Cholesterol 40 mg/dL (29-60) 06/10/18 06:10 Free T4 1.14 ng/dL (0.78-2.19) 06/10/18 06:10 TSH 3rd Generation 17.00 mIU/mL (0.46-4.68) H 06/11/18 07:00 Venous Blood Potassium 3.8 mmol/L (3.6-5.2) 06/09/18 21:10 Attending/Attestation - Attestation I have personally seen and examined this patient.: Yes I have fully participated in the care of the patient.: Yes I have reviewed all pertinent clinical information, including history, physical exam and plan: Yes Notes (Text): 06/12/18 14:45 62 year old male with past medical history of CHF (EF 25%) s/p PPM, CAD s/p stents, hypertension, hypothyroidism and history of medication noncompliance who presented with complaint of shortness of breath secondary to acute systolic CHF exacerbation. He was started on iv lasix and primacor drip with improvement of symptoms. He had episode of nonsustained Vtach on telemonitor and was started on amiodarone by cardiology. His symptoms improved and lasix was switched to po. Primacor drip was discontinued. He is on synthroid for history of hypothyroidism. Recommended to monitor TFTs closely while on amiodarone. He had mild GLORY. Lasix switched to po as above and lisinopril dose was decreased. Patient is discharged home to follow up with pmd. Follow up with cardiology. Monitor TFTs while on amiodarone. Counselled on medication compliance. Alisha Diaz MD Hospitalist.
--- NOTE | 2018-06-12 19:07 | PN ---
DATE: 06/12/2018 SUBJECTIVE: The patient is without shortness of breath. PHYSICAL EXAMINATION: VITAL SIGNS: Blood pressure 130/88, heart rate is in the 80s,. NECK: Negative JVD. LUNGS: Without rales. HEART: S1 and S2. EXTREMITIES: Without edema. LABORATORY DATA: Hemoglobin is 14.8. Chemistries: BUN and creatinine are 35 and 1.6. IMPRESSION: 1. Status post congestive heart failure. 2. Prerenal azotemia. 3. Coronary artery disease. 4. Stable angina. 5. History of ventricular tachycardia. PLAN: Given these findings, the patient is stable from a cardiac perspective. We will continue with his ICD followup as an outpatient. Tay Redd MD
== END 2018-06-12 14:29 | disposition home or self-care (01) | DRG 292 ==
LOC: ED 20:18 → ERH 22:36 → 2RNO 06-10 00:19 → 3RSO 06-11 14:03
PROVIDERS: ADMIT Internal Medicine; ATTEND Internal Medicine
DX: I11.0 Hypertensive heart disease with heart failure (principal); I47.2 Ventricular tachycardia; N17.9 Acute kidney failure, unspecified; I50.23 Acute on chronic systolic (congestive) heart failure; J44.9 Chronic obstructive pulmonary disease, unspecified; I73.9 Peripheral vascular disease, unspecified; E03.9 Hypothyroidism, unspecified; Z87.891 Personal history of nicotine dependence; Z89.429 Acquired absence of other toe(s), unspecified side; I71.9 Aortic aneurysm of unspecified site, without rupture; I25.5 Ischemic cardiomyopathy; I42.0 Dilated cardiomyopathy; Z91.14 Patient's other noncompliance with medication regimen; Z95.0 Presence of cardiac pacemaker; I25.118 Atherosclerotic heart disease of native coronary artery with other forms of angina pectoris; E78.5 Hyperlipidemia, unspecified; I25.2 Old myocardial infarction; T46.2X5A Adverse effect of other antidysrhythmic drugs, initial encounter; Z79.82 Long term (current) use of aspirin; Z79.890 Hormone replacement therapy; Z79.899 Other long term (current) drug therapy; Z86.79 Personal history of other diseases of the circulatory system; Z95.5 Presence of coronary angioplasty implant and graft; Z95.810 Presence of automatic (implantable) cardiac defibrillator